=== PATIENT | female | born 1940 | race Caucasian/White ===

== ENCOUNTER 2017-09-03 09:56 | Emergency (ER) | payer MEDICARE ==
[~2017-09-03] VITALS: Ht 152.4 cm; Wt 52.2 kg
[~2017-09-03 09:56] MED LIST: ALLER-FEX180 MG PO; AMBIEN 5 MG TABL5 M1 PO; CRANBERRY300 MG PO; DILTIAZEM 24HR180 M1 PO; ELIQUIS5 MG PO; FELODIPINE 5 MG5 M1 PO; FISH OIL 1,001000 M2 PO; LIPITOR80 MG PO; MAXZIDE-25 MG1 EACH PO; PROAIR RESPICL90 MCG IH; PROBIOTIC1 EAC1 PO; PROPAFENONE 15150 MG PO; TRAMADOL 50 MG50 MG PO; VITAMIN D3400 UNIT PO; VITAMINC500 PO; XANAX 0.5 MG0.5 MG PO
[2017-09-03] MEDS ORDERED: LASIX 20 MG TAB20 MG PO (10:06)
[2017-09-03 10:32] LABS: HEMOGLOBIN 10.1 gm/dL (12.0-15.0); MCH 28.9 pg (26.0-34.0); MCHC 32.5 g/dL (28.0-37.0); MCV 88.8 fL (80.0-100.0); MPV 7.9 fl. (7.2-11.1); NUCLEATED RBCS 0 /100WBC; PLATELET COUNT* 286 thou/uL (150-400); RBC 3.49 mil/uL (4.20-5.00); RDW-CV 14.5 % (10.5-14.5); WBC 12.9 thou/uL (4.0-11.0)
[2017-09-03 10:37] LABS: ANION GAP 7 mmol/L (7-16); BUN 29 mg/dL (7-18); CALCIUM 8.5 mg/dL (8.5-10.1); CHLORIDE 100 mmol/L (98-107); CO2 28 mmol/L (21-32); CREATININE 1.9 mg/dL (0.6-1.3); GLUCOSE 103 mg/dL (70-99); POTASSIUM 4.5 mmol/L (3.5-5.1); SODIUM 135 mmol/L (136-145)
[2017-09-03 10:49] LABS: ALBUMIN 2.7 g/dL (3.4-5.0); ALKALINE PHOSPHATASE 150 U/L (46-116); SGOT 35 U/L (15-37); SGPT 37 U/L (30-65); TOTAL BILIRUBIN 0.3 mg/dL (<0.1-1.0); TOTAL PROTEIN 8.1 g/dL (6.4-8.2); TROPONIN-I LEVEL <0.06 ng/mL (<0.06)
[2017-09-03 11:07] LABS: URINE BILIRUBIN NEGATIVE (Negative); URINE BLOOD TRACE (Negative); URINE CLARITY CLEAR; URINE COLOR STRAW; URINE GLUCOSE-RANDOM NEGATIVE (Negative); URINE KETONES NEGATIVE (Negative); URINE LEUKOCYTES-REFLEX TRACE (Negative); URINE NITRITE-REFLEX NEGATIVE (Negative); URINE PROTEIN 2+ (Negative); URINE UROBILINOGEN 0.2 E.U./dl (0.2-1.0)
[2017-09-03 11:15] LABS: SQUAMOUS 4-10 Moderate /LPF (0-3)
[2017-09-03 11:16] LABS: BACTERIA-REFLEX None Seen /HPF (None Seen); URINE RBC 0-2 Rare /HPF (0-2); URINE WBC-REFLEX 0-5 Rare /HPF (0-5)
[2017-09-03 11:17] LABS: CASTS None Seen /LPF (None Seen); CRYSTALS None Seen /LPF (None Seen); MUCUS None Seen strn/LPF (None Seen)
[2017-09-03 11:32] LABS: ABSOLUTE BASOPHILS 0.1 thou/uL (0.0-0.2); ABSOLUTE LYMPHOCYTES 0.3 thou/uL (0.8-5.3); ABSOLUTE MONOCYTES 0.3 thou/uL (0.0-1.2); ABSOLUTE NEUTROPHILS 12.3 thou/uL (1.6-8.1); PLATELET ESTIMATE ADEQUATE
[2017-09-03 11:33] LABS: MICROCYTES Occasional; POIKILOCYTOSIS Occasional
[2017-09-03] MEDS ORDERED: DOXYCYCLINE 10100 MG PO (12:50)
[2017-09-03 12:55] VITALS: BP 148/50
--- NOTE | 2017-09-04 13:39 | EKG ---
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
== END 2017-09-03 12:56 | disposition left against medical advice (07) ==
LOC: M.ERS 09:56
PROVIDERS: Physician Assistant
DX: L02.31 Cutaneous abscess of buttock (principal); N76.4 Abscess of vulva; N17.9 Acute kidney failure, unspecified; H53.8 Other visual disturbances; F41.9 Anxiety disorder, unspecified; F32.9 Major depressive disorder, single episode, unspecified; E78.00 Pure hypercholesterolemia, unspecified; Z88.0 Allergy status to penicillin

== ENCOUNTER 2017-09-03 14:09 | Inpatient (IN) | payer MEDICARE ==
[~2017-09-03] VITALS: Ht 152.4 cm; Wt 55.8 kg
[~2017-09-03 14:09] MED LIST changes: +DOXYCYCLINE 10100 MG PO; +LASIX 20 MG TAB20 MG PO
[2017-09-03 18:00] VITALS: BP 176/57
[2017-09-03 18:48] VITALS: BP 165/60
--- NOTE | 2017-09-03 20:10 | NUR ---
ASSUMED CARE OF PATIENT AT 1830. ALERT AND ORIENTED X4. ADMISSION HISTORY AND ASSESSMENT COMPLETED AND CHARTED. VSS ON ROOM AIR. PATIENT HAS NO COMPLAINTS OF PAIN, NAUSEA, OR SOA. ORIENTED TO ROOM AND INSTRUCTED TO USE CALL LIGHT FOR NEEDS. PLACED CALL LIGHT WITHIN REACH AND WILL CONTINUE TO MONITOR.
[2017-09-03 20:15] VITALS: BP 165/68
[2017-09-04 04:31] LABS: ABSOLUTE EOSINOPHILS 0.2 thou/uL (0.0-0.7); ABSOLUTE LYMPHOCYTES 0.7 thou/uL (0.8-5.3); ABSOLUTE MONOCYTES 1.2 thou/uL (0.0-1.2); BASOPHILS 0.4 %; EOSINOPHILS 1.9 %; HEMATOCRIT 27.8 % (37.0-47.0); MCH 29.1 pg (26.0-34.0); MCHC 32.4 g/dL (28.0-37.0); MCV 89.9 fL (80.0-100.0); MONOCYTES 10.9 %; NUCLEATED RBCS 0 /100WBC; PLATELET COUNT* 266 thou/uL (150-400); POLYS 80.8 %; RBC 3.09 mil/uL (4.20-5.00); RDW-CV 14.3 % (10.5-14.5); WBC 11.2 thou/uL (4.0-11.0)
--- NOTE | 2017-09-04 04:45 | NUR ---
PATIENT REMAINS ALERT AND ORIENTED X4 THROUGHOUT SHIFT. VITAL SIGNS STABLE ON ROOM AIR. IV PATENT IN THE RIGHT AC INFUSING AT 70 ML/HR PER ORDERS. MAINTAINED NPO STATUS SINCE MIDNIGHT. REPOSITIONING SELF IN BED. PAIN MANAGED WITH PO MEDICAITON PER ORDERS. DENIES NAUSEA. TRANSFERRING AD MANDEEP TO THE RESTROOM. RESTING COMFORTABLY THROUGHOUT NIGHT. HOURLY ROUNDING COMPLETE. CALL LIGHT WITHIN REACH. NURSING WILL CONTINUE TO MONITOR.
[2017-09-04 04:53] LABS: CALCIUM 8.4 mg/dL (8.5-10.1); CREATININE 1.6 mg/dL (0.6-1.3); POTASSIUM 4.4 mmol/L (3.5-5.1)
[2017-09-04 08:51] VITALS: BP 125/58
--- NOTE | 2017-09-04 15:27 | NUR ---
PT.RETURNING FROM BATHROOM TO BED. GAIT STEADY. MOVES WELL. SHE SAID SHE LIVES ALONE AT THE [facility]. SHE SAID YOU CAN PURCHASE MEALS THERE ABUT SHE COOKS HER HERSELF. SHE TAKES HER OWN MEDICATIONS. SHE NO LONGER DRIVES. HER SON OR DAUGHTER TAKE HER TO THE DR.OR ERRANDS. SHE DOES NOT USE ANY DME. NOT HX OF SNF. SHE WOULD LIKE TO USE [facility] IF SHE NEEDS HOME HEALTH. SHE HAS USED THEM BEFORE. CM WILL FOLLOW.
[2017-09-04 16:00] VITALS: BP 166/53
--- NOTE | 2017-09-04 18:09 | NUR ---
ASSUMED CARE OF PATIENT AFTER MORNING REPORT. ALERT AND ORIENTED X4. ASSESSMENT COMPLETED AND CHARTED. VSS ON ROOM AIR. PATIENT HAD COMPLAINT OF HEADACHE AND WAS GIVEN PAIN MEDICATION. PATIENT WAS VERY ANXIOUS THIS AFTERNOON, ANTIANXIETY MEDS GIVEN. PATIENTS IV WAS RED AND IRRITATED SO IT WAS DISCONTINUED AND A NEW LINE WAS PLACED IN THE LEFT WRIST. FLUIDS AND ANTIBIOTICS INFUSED ORDERED. PATIENT HAS HAD A SHOWER TODAY. HOURLY ROUNDS, CALL LLIGHT WITHIN REACH, NURSING WILL CONTINUE TO MONITOR.
[2017-09-04 20:00] VITALS: BP 171/72
[2017-09-04 23:00] VITALS: BP 166/57
[2017-09-05 03:59] LABS: ABSOLUTE EOSINOPHILS 0.2 thou/uL (0.0-0.7); ABSOLUTE LYMPHOCYTES 0.7 thou/uL (0.8-5.3); ABSOLUTE MONOCYTES 1.3 thou/uL (0.0-1.2); ABSOLUTE NEUTROPHILS 7.4 thou/uL (1.6-8.1); BASOPHILS 0.5 %; EOSINOPHILS 2.2 %; HEMATOCRIT 24.6 % (37.0-47.0); HEMOGLOBIN 8.1 gm/dL (12.0-15.0); LYMPHOCYTES 7.4 %; MCH 29.1 pg (26.0-34.0); MCHC 32.8 g/dL (28.0-37.0); MCV 88.7 fL (80.0-100.0); MONOCYTES 13.3 %; MPV 8.1 fl. (7.2-11.1); NUCLEATED RBCS 0 /100WBC; PLATELET COUNT* 249 thou/uL (150-400); POLYS 76.6 %; RBC 2.77 mil/uL (4.20-5.00); RDW-CV 14.1 % (10.5-14.5); WBC 9.7 thou/uL (4.0-11.0)
[2017-09-05 04:48] LABS: ALBUMIN 1.9 g/dL (3.4-5.0); CALCIUM 7.6 mg/dL (8.5-10.1); CREATININE 1.5 mg/dL (0.6-1.3); POTASSIUM 3.9 mmol/L (3.5-5.1); TOTAL BILIRUBIN 0.2 mg/dL (<0.1-1.0); TOTAL PROTEIN 6.3 g/dL (6.4-8.2)
--- NOTE | 2017-09-05 06:00 | NUR ---
PATIENT HAS SLEPT WELL THROUGHOUT THE NIGHT WITHOUT ANY ISSUES. NO C/O PAIN. VSS ON RA, ALTHOUGH BP ELEVATED. MEDICATION GIVEN AND CHARTED. PATIENT IS UP AD-MANDEEP AND STEADY. IV IN LEFT WRIST-NS @ 70ML/HR. IV ABT GIVEN WITHOUT ANY ADVERSE SIDE EFFECTS. PATIENT INSTRUCTED TO USE CALL LIGHT WHEN NEEDING ASSISTANCE. HOURLY ROUNDS MADE. WILL CONTINUE WITH PLAN OF CARE AND NURSING TO MONITOR.
[2017-09-05 09:03] VITALS: BP 160/57
[2017-09-05 16:00] VITALS: BP 130/44
--- NOTE | 2017-09-05 18:10 | NUR ---
PATIENT REMAINED ALERT AND ORIENTED X'S 4. VITAL SIGNS AND SPO2 STABLE. IV WENT BAD, NEW IV STARTED, FLUIDS INFUSING. IF NEW IV GOES BAD, DO NOT ATTEMPT NEW ONE, CALL THE CREDIT COLLECTIONS ANALYST TO START NEW ONE. PAIN WELL CONTROLLED WITH PAIN MEDS. TOLERATED DIET, NO NAUSEA AND VOMITING. PATIENT WALKED HALLS. SKIN HAS BRUISING, BUT INTACT. COMPLETED HOURLY ROUNDING. CALL LIGHT WITHIN REACH. WILL CONTINUE TO MONITOR.
[2017-09-06 04:14] LABS: HEMATOCRIT 26.7 % (37.0-47.0); HEMOGLOBIN 8.8 gm/dL (12.0-15.0); MCH 29.2 pg (26.0-34.0); MCHC 32.8 g/dL (28.0-37.0); MCV 89.2 fL (80.0-100.0); MPV 7.6 fl. (7.2-11.1); NUCLEATED RBCS 0 /100WBC; PLATELET COUNT* 271 thou/uL (150-400); RBC 2.99 mil/uL (4.20-5.00); RDW-CV 14.2 % (10.5-14.5); WBC 9.6 thou/uL (4.0-11.0)
[2017-09-06 05:00] LABS: CREATININE 1.4 mg/dL (0.6-1.3); POTASSIUM 4.1 mmol/L (3.5-5.1); TOTAL BILIRUBIN 0.2 mg/dL (<0.1-1.0); TOTAL PROTEIN 6.7 g/dL (6.4-8.2)
[2017-09-06 06:31] LABS: ABSOLUTE EOSINOPHILS 0.1 thou/uL (0.0-0.7); ABSOLUTE LYMPHOCYTES 0.4 thou/uL (0.8-5.3); ABSOLUTE MONOCYTES 0.8 thou/uL (0.0-1.2); ABSOLUTE NEUTROPHILS 8.4 thou/uL (1.6-8.1)
[2017-09-06 06:32] LABS: PLATELET ESTIMATE ADEQUATE
[2017-09-06 09:00] VITALS: BP 142/43
[2017-09-06 16:00] VITALS: BP 162/55
--- NOTE | 2017-09-06 16:42 | NUR ---
PT UP IN HALLS WITH STEADY GAIT. PAIN WELL CONTROLLED WITH PO MEDS. SEROSANG DRAINAGE AFTER WARM MOIST COMPRESSES APPLIED. TOLERATING PO WELL
--- NOTE | 2017-09-06 21:35 | NUR ---
THIS NURSE ASSUMES CARE OF PT AT 1930, PT ALERT AND OREINTED, C/O LEFT BUTTOCK PAIN, RATES PAIN 09/22, PT REPORTS HAVING A GOOD DAY, DENIES ANY OTHER COMPLAINTS, REPORTS HAVING A BM TODAY, ASSESSMENT COMPLETE, SCHEDULED MEDS AND PRN MEDS ADMINISTERED, PT RESTING IN BED WATCHING TELEVISION
[2017-09-07 04:19] LABS: ABSOLUTE EOSINOPHILS 0.4 thou/uL (0.0-0.7); ABSOLUTE LYMPHOCYTES 0.5 thou/uL (0.8-5.3); ABSOLUTE MONOCYTES 0.9 thou/uL (0.0-1.2); ABSOLUTE NEUTROPHILS 4.4 thou/uL (1.6-8.1); BASOPHILS 0.7 %; EOSINOPHILS 6.5 %; HEMATOCRIT 24.2 % (37.0-47.0); LYMPHOCYTES 8.6 %; MCH 29.3 pg (26.0-34.0); MCHC 32.9 g/dL (28.0-37.0); MCV 88.9 fL (80.0-100.0); MPV 7.6 fl. (7.2-11.1); NUCLEATED RBCS 0 /100WBC; PLATELET COUNT* 276 thou/uL (150-400); POLYS 70.2 %; RBC 2.73 mil/uL (4.20-5.00); RDW-CV 14.5 % (10.5-14.5); WBC 6.3 thou/uL (4.0-11.0)
[2017-09-07 04:32] LABS: ALBUMIN 1.8 g/dL (3.4-5.0); CREATININE 1.5 mg/dL (0.6-1.3); POTASSIUM 3.8 mmol/L (3.5-5.1); TOTAL BILIRUBIN 0.2 mg/dL (<0.1-1.0); TOTAL PROTEIN 6.2 g/dL (6.4-8.2)
--- NOTE | 2017-09-07 06:21 | NUR ---
PT EASY TO ARROUSE THIS MORNING, BP OBTAINED, MORNING MEDS ADMINISTERED, PT C/O SOA, O2 SAT 86% ON ROOM AIR, NC PLACED AT 2L, SATS UP TO 93%, MINIMAL DRAINAGE FROM ABSCESS, PT CHANGES PADS INDEPENDENTLY AND DOES NOT WANT THIS NURSE TO SEE THE WOUND, PT ABLE TO AMBULATE TO BATHROOM INDEPENDENTLY, THEN BACK TO BED WITH NC IN PLACE, CALLL LIGHT WITHIN REACH, WEB PAGE SENT TO PHYSICAN REGARDING 02 DESATURATION IN AM 2 DAYS IN A ROW AND SOA THIS DAY
[2017-09-07 06:50] LABS: PLATELET ESTIMATE ADEQUATE
[2017-09-07 06:51] LABS: ANISOCYTOSIS 1+; POIKILOCYTOSIS 1+; POLYCHROMASIA Occasional
--- NOTE | 2017-09-07 07:19 | CON ---
[address] [address] CONSULTATION Name: SAMUELADRIANA R Room: [address] IN M.R.#: [id number] Admission: 09/03/17 Attend Phys: Jozef Dang MD Discharge: Date of : 38 Report #: [id number] THIS REPORT FOR: //name// CC: Jozef Butcherchance DATE OF SERVICE: 09/04/2017 ATTENDING PHYSICIAN: Jozef Dang M.D. REASON FOR EVALUATION: Left buttock/left labia skin and soft tissue infection with abscess. HISTORY OF PRESENT ILLNESS: Chart reviewed, patient examined. This is a 76-year-old without significant medical history who presented with lightheadedness, was evaluated and blurry vision as well. This raised question of possible HAM BONER event, referred to the Emergency Room. Evaluation was undertaken including imaging, which was unremarkable in terms of an acute process. Did note a painful inflammation involving her left buttock and labia. 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 She had low-grade temperature elevation as well. Denies significant pulmonary or gastrointestinal complaints. Blood cultures have been collected, in progress. Empirically started on therapy with vancomycin. ALLERGIES: PENICILLIN. MEDICATIONS: Include diltiazem, cholecalciferol, fish oil, ascorbic acid, atorvastatin, pantoprazole, vancomycin, propafenone, tramadol, hydralazine, p.r.n. analgesics and antiemetics. PAST MEDICAL HISTORY: Elevated cholesterol, history of anxiety, depression, previous tubal ligation. SOCIAL HISTORY: Former smoker. No ethanol, no illicit drug use. FAMILY HISTORY: Noncontributory. REVIEW OF SYSTEMS: As above. PHYSICAL EXAMINATION: GENERAL: She appears somewhat chronically ill, undernourished, is pleasant, cooperative, mild to moderate distress. VITAL SIGNS: Temperature 98.5, pulse 82, respirations 20, blood pressure is 120/54. SKIN: Warm, dry. HEENT: [place] [address] CONSULTATION Name: ADRIANA BAKER Room: [address] IN [facility].#: [id number] Admission: 09/03/17 Attend Phys: Jozef Dang MD Discharge: Date of : 39 Report #: [id number] NECK: Supple. LUNGS: Diminished, otherwise clear. HEART: Regular, has a soft systolic murmur. ABDOMEN: Soft, no peritoneal signs. There is no tenderness in the perineal area. She has got a large inflammatory subcutaneous mass. It is quite indurated. There is some superficial erythema as well. It is tender involving the left buttock, also has a left labial site as well. LABORATORY DATA: CBC: White count 11.2, H and H 9.0 and 27.8, platelets of 266. Electrolytes: Sodium 136, potassium , chloride 104, bicarbonate is 26, BUN and creatinine 22 and 1.6. Urinalysis unremarkable. Imaging of the head again showed no evidence of acute process. Lactic acid 0.8. ASSESSMENT: Multifocal subcutaneous inflammatory masses, probable abscess, given the fact that there is a that makes it less likely to have a primary colonic compromise, question of perforation. We will image the site. I think the vancomycin is reasonable. If she would have a deterioration, we would add some treatment for presumptive colonic polymicrobial etiology as well. Noted Surgery to evaluate. There is some concern due to previous situation. She is on Eliquis and had some bleeding post-bedside debridement of a perineal abscess. Thank you, we will follow. <ELECTRONICALLY SIGNED> By: Michael Oliveira MD 09/07/17 0719 0807 1534Joselawrence Oliveira MD /nt
[2017-09-07 08:30] VITALS: BP 157/52
[2017-09-07 16:27] VITALS: BP 179/57
[2017-09-07 20:30] VITALS: BP 168/52
[2017-09-08 03:28] VITALS: BP 181/66
[2017-09-08 03:57] LABS: ABSOLUTE EOSINOPHILS 0.3 thou/uL (0.0-0.7); ABSOLUTE LYMPHOCYTES 0.5 thou/uL (0.8-5.3); ABSOLUTE MONOCYTES 0.9 thou/uL (0.0-1.2); ABSOLUTE NEUTROPHILS 3.7 thou/uL (1.6-8.1); BASOPHILS 0.5 %; EOSINOPHILS 6.3 %; HEMATOCRIT 26.5 % (37.0-47.0); HEMOGLOBIN 8.6 gm/dL (12.0-15.0); LYMPHOCYTES 8.9 %; MCH 28.8 pg (26.0-34.0); MCHC 32.6 g/dL (28.0-37.0); MCV 88.5 fL (80.0-100.0); MPV 7.2 fl. (7.2-11.1); NUCLEATED RBCS 0 /100WBC; PLATELET COUNT* 309 thou/uL (150-400); POLYS 67.3 %; RBC 2.99 mil/uL (4.20-5.00); RDW-CV 14.3 % (10.5-14.5); WBC 5.5 thou/uL (4.0-11.0)
[2017-09-08 04:07] LABS: CREATININE 1.3 mg/dL (0.6-1.3); POTASSIUM 3.5 mmol/L (3.5-5.1); TOTAL BILIRUBIN 0.2 mg/dL (<0.1-1.0); TOTAL PROTEIN 6.7 g/dL (6.4-8.2)
[2017-09-08 04:08] LABS: PREALBUMIN 14.1 mg/dL (18.0-35.7)
[2017-09-08 04:16] VITALS: BP 181/66
--- NOTE | 2017-09-08 05:07 | NUR ---
PATIENT REMAINS ALERT AND ORIENTED X4 THROUGHOUT SHIFT. VITAL SIGNS STABLE ON 2 LITERS OF OXYGEN. IV PATENT IN THE LEFT FOREARM SALINE LOCKED. INFUSED ANTIBIOTICS PER ORDERS. PAIN MANAGED WITH PO MEDICATION. REPOSITIONING SELF IN BED. TRANSFERRING AD MANDEEP TO THE RESTROOM. PATIENT STATED SHE WAS HAVING DIFFICULTY BREATHING THIS AM. PAGED PHYSICIAN. ORDERS RECIEVED. MAINTAINED NPO STATUS SINCE MIDNIGHT PER ORDERS. K PAD IN ROOM, PATIENT DECLINED USING. HOURLY ROUNDING COMPLETE. RESTING COMFORTABLY THROUGHOUT THE NIGHT. BED IN LOW POSITION. CALL LIGHT WITHIN REACH. NURSING WILL CONTINUE TO MONITOR.
[2017-09-08 07:45] VITALS: BP 154/58
[2017-09-08 16:02] VITALS: BP 195/54
--- NOTE | 2017-09-08 17:38 | NUR ---
ALERT AND ORIENTED X4. UP AD MANDEEP DURING AMBULATION. IV IS PATENT AND SALINE LOCKED. PAIN BEING MANAGED WITH PO MEDICATION. DENIES NAUSEA. ABULATED IN HALLWAYS THIS SHIFT. BLOOD PRESSURE WAS ELEVATED THIS EVENING, PRN MEDICATION GIVEN. HOURLY ROUNDS HAVE BEEN MAINTAINED THROUGHOUT SHIFT. CALL LIGHT IS WITHIN REACH. NURSING WILL CONTINUE TO MONITOR.
[2017-09-08 18:54] VITALS: BP 195/54
[2017-09-08 22:05] VITALS: BP 178/61
[2017-09-09 00:41] VITALS: BP 117/57
--- NOTE | 2017-09-09 03:48 | NUR ---
ASSUMED PATIENT CARE FROM NIGHT NURSE AT APPROXIMATELY 0000. PATIENT SLEEPING AT THIS TIME. REPORT GIVEN AND AGREE WITH ASSESSMENT CHARTED. NURSING TO CONTINUE MONITORING.
[2017-09-09 04:13] VITALS: BP 131/56
[2017-09-09 04:40] LABS: HEMATOCRIT 26.5 % (37.0-47.0); HEMOGLOBIN 8.8 gm/dL (12.0-15.0); MCH 28.9 pg (26.0-34.0); MCHC 33.1 g/dL (28.0-37.0); MCV 87.4 fL (80.0-100.0); MPV 7.6 fl. (7.2-11.1); NUCLEATED RBCS 0 /100WBC; RBC 3.03 mil/uL (4.20-5.00); RDW-CV 14.6 % (10.5-14.5); WBC 6.3 thou/uL (4.0-11.0)
[2017-09-09 04:57] LABS: CALCIUM 8.5 mg/dL (8.5-10.1); CREATININE 1.4 mg/dL (0.6-1.3)
[2017-09-09 04:58] LABS: PLATELET COUNT* 385 thou/uL (150-400)
[2017-09-09 05:12] LABS: PREALBUMIN 14.8 mg/dL (18.0-35.7)
[2017-09-09 05:25] LABS: POTASSIUM 2.9 mmol/L (3.5-5.1)
[2017-09-09 05:42] LABS: ABSOLUTE EOSINOPHILS 0.1 thou/uL (0.0-0.7); ABSOLUTE LYMPHOCYTES 0.6 thou/uL (0.8-5.3); ABSOLUTE MONOCYTES 0.8 thou/uL (0.0-1.2); ABSOLUTE NEUTROPHILS 4.9 thou/uL (1.6-8.1); ANISOCYTOSIS 1+; HYPOCHROMASIA Occasional; PLATELET ESTIMATE ADEQUATE; POIKILOCYTOSIS 1+
--- NOTE | 2017-09-09 07:46 | NUR ---
PATIENT HAS RESTED QUIETLY THROUGHOUT THE NIGHT. VSS ON RA. NO C/O PAIN. IV IN LEFT FOREARM-SL. PATIENT INSTRUCTED TO USE CALL LIGHT WHEN NEEDING ASSISTANCE. HOURLY ROUNDS MADE. WILL CONTINUE WITH PLAN OF CARE AND NURSING TO MONITOR.
[2017-09-09 09:00] VITALS: BP 162/60
--- NOTE | 2017-09-09 16:29 | NUR ---
ASSUMED CARE OF PATIENT AFTER MORNING REPORT. ALERT AND ORIENTED X4. ASSESSMENT COMPLETED AND CHARTED. VSS ON ROOM AIR. PATIENT HAD MINIMAL COMLAINTS OF PAIN THIS SHIFT, GIVEN HDROCODONE BUT PATIENT REFUSED, ASKED FOR TYLENOL INSTEAD. DR REYNOLDS ORDERED ULTRASOUND OF BUTTOCK/FENG AREA AND CHANGED ANTIBIOTICS. ORDERED ANTIBIOTICS INFUSED ORDERED. PATIENT HAS BEEN UP AD MANDEEP IN THE ROOM AND WALKING THE HALLS THIS SHIFT. PATIENTS ANXIETY HAS INCREASED THIS AFTERNOON ABOUT GETTING THE ULTRASOUND DONE AND KNOWING HER LAB CULTURE SENSITIVITIES. PATIENT HAS FAMILY IN THE ROOM AY THIS TIME. HOURLY ROUNDS MAINTAINED, CALL LIGHT WITHIN REACH. NURSIN WILL CONTINUE TO MONITOR.
[2017-09-09 20:30] VITALS: BP 185/69
[2017-09-10 00:07] VITALS: BP 155/55
[2017-09-10 00:08] VITALS: BP 152/71
[2017-09-10 04:14] LABS: ABSOLUTE EOSINOPHILS 0.3 thou/uL (0.0-0.7); ABSOLUTE LYMPHOCYTES 0.5 thou/uL (0.8-5.3); ABSOLUTE MONOCYTES 0.9 thou/uL (0.0-1.2); ABSOLUTE NEUTROPHILS 3.3 thou/uL (1.6-8.1); BASOPHILS 0.5 %; EOSINOPHILS 5.8 %; HEMATOCRIT 25.2 % (37.0-47.0); HEMOGLOBIN 8.3 gm/dL (12.0-15.0); MCH 28.7 pg (26.0-34.0); MCHC 32.9 g/dL (28.0-37.0); MCV 87.4 fL (80.0-100.0); MONOCYTES 18.8 %; MPV 7.3 fl. (7.2-11.1); NUCLEATED RBCS 0 /100WBC; PLATELET COUNT* 343 thou/uL (150-400); POLYS 64.9 %; RBC 2.88 mil/uL (4.20-5.00); RDW-CV 14.9 % (10.5-14.5); WBC 5.1 thou/uL (4.0-11.0)
[2017-09-10 04:28] LABS: CALCIUM 8.2 mg/dL (8.5-10.1); CREATININE 1.4 mg/dL (0.6-1.3); POTASSIUM 4.3 mmol/L (3.5-5.1); TOTAL BILIRUBIN 0.3 mg/dL (<0.1-1.0); TOTAL PROTEIN 6.5 g/dL (6.4-8.2)
--- NOTE | 2017-09-10 04:33 | NUR ---
PATIENT REMAINS ALERT AND ORIENTED X4 THROUGHOUT SHIFT. VITAL SIGNS STABLE ON ROOM AIR. IV PATENT IN THE LEFT FOREARM SALINE LOCKED. TRANSFERS AD MANDEEP TO THE RESTROOM. MAINAINED AND TOLERATED REGULAR DIET THROUGHOUT SHIFT. DENIES PAIN OR NAUSEA. RESTING COMFORTABLY THROUGHOUT THE NIGHT. REPOSITIONING SELF IN BED. MEDICATIONS GIVEN PER ORDERS. NO CONCERNS VOICED AT THIS TIME. HOURLY ROUNDING COMPLETE. CALL LIGHT WITHIN REACH. NURSING WILL CONTINUE TO MONITOR.
[2017-09-10 09:18] VITALS: BP 157/56
--- NOTE | 2017-09-10 11:33 | EKG ---
[place] [address] ELECTROCARDIOGRAM REPORT Name: SAMUELADRIANA Juan Jose Room: [address] ADM IN M.R.#: [id number] Admission: 09/03/17 Attend Phys: Jozef Dang MD Discharge: Date of : 38 Report #: [id number] THIS REPORT FOR: //name// [facility] Test Date: 2017-09-10 Test Time: 10:03:10 Pat Name: ADRIANA BAKER Department: Room: [address] Gender: F Hospital Receiving Clerk: : 1940 Requested By: Joe Alvarado Order Number: [id number] Reading MD: Agustin Browning Measurements Intervals [place] Rate: 74 P: 29 MA: 52 QRS: 56 QRSD: 87 T: 42 QT: 397 QTc: 441 Interpretive Statements Sinus rhythm Short MA interval Anteroseptal infarct, old Baseline wander in lead(s) V6 Compared to ECG 09/03/2017 10:05:59 Short MA interval now present Myocardial infarct finding now present Electronically Signed On 09-10-2017 11:33:13 CDT by Agustin Browning [email or web address] <ELECTRONICALLY SIGNED> By: Agustin Browning MD, [facility] 09/10/17 1133 1003 1003 Agustin Browning MD, [facility] /EPI
[2017-09-10 11:44] VITALS: BP 157/56
[2017-09-10 11:47] VITALS: BP 157/56
[2017-09-10 11:48] VITALS: BP 157/56
[2017-09-10] MEDS ORDERED: MINOCIN100 MG PO (12:01)
--- NOTE | 2017-09-10 13:01 | NUR ---
Nutrition: Pt discharging today. She stated she doesn't eat a lot, but her doctor put her on Boost t.i.d. at home. We discussed protein needs. No further nutrition needs.
--- NOTE | 2017-09-10 15:29 | NUR ---
ASSUMED CARE OF PATIENT AFTER MORNING REPORT. ALERT AND ORIENTED X4. ASSESSMENT COMPLETED AND CHARTED. VSS ON ROOM AIR. PATIENT HAD NO COMPLAINTS OF PAIN, NAUSEA, OR SOA. PO ANTIBIOTICS ADMINISTERED ORDERED. PATIENT REFUSED TO TAKE DISCHARGE PHOTOS OF HER WOUND FOR THE CHART. PATIENT DISCHARGED AT 1500. L PERSONAL BELONGING, PRESCRIPTIONS AND DISCHARGE INFORMATION SENT WITH PATIENT UPON DISCHARGE.
--- NOTE | 2017-09-13 18:18 | CON ---
[address] [address] CONSULTATION Name: SAMUELADRIANA Juan Jose Room: [address] IN M.R.#: [id number] Admission: 09/03/17 Attend Phys: Jozef Dang MD Discharge: 09/10/17 Date of : 38 Report #: [id number] THIS REPORT FOR: //name// CC: Jozef Stroud MD DATE OF SERVICE: 09/09/2017 HISTORY OF PRESENT ILLNESS: The patient is a 76-year-old white female who I was asked to see in the hospital today after her blood pressure was noted to be elevated. The patient has an extensive past medical history. Unfortunately, not all of the old records are available. She was actually admitted here in 03/2016 with atrial fibrillation. Apparently, she had showed up in her doctor's office with atrial fibrillation. She was eventually discharged on Eliquis. She did undergo an echocardiogram at that time that showed normal left ventricular function. The atria are both dilated and she had aortic sclerosis with moderate mitral regurgitation. She underwent a nuclear stress test in May 2016 as an outpatient that showed no evidence of ischemia. The patient states that she eventually went to because her son wanted her to go there. Dr. Browning attempted cardioversion, but she reverted to atrial fibrillation. When she went to , she was actually cardioverted 3 times successfully to sinus rhythm. She has actually done well since that time. Recently, the patient went to the color blender with blurred vision. She was felt to have had a stroke. She was sent to the Emergency Room and admitted. Since her admission, she has been evaluated by Infectious Disease, Gynecology. She was found to have a sacral sore. She has been receiving surgery for her soft tissue infection. Her blood pressure is noted to be elevated, so Cardiology consultation was requested. PAST MEDICAL HISTORY: Significant in that she has had previous appendectomy, cancer of the colon removed. She has had a tonsillectomy. She has a history of hypertension, hyperlipidemia, atrial fibrillation. MEDICATIONS: On admission consisted of the following: She was on Eliquis, Cardizem-CD, propafenone, Lasix, tramadol, Lipitor. ALLERGIES: PENICILLIN. FAMILY HISTORY: Father, heart disease. SOCIAL HISTORY: She is , lives in [place]. She goes for walks on a regular basis. Quit smoking years ago. No history of alcohol abuse. REVIEW OF SYSTEMS: She has had no history of stroke, asthma. She has had a carotid Doppler in the past at , no history of liver disease. No previous history of kidney disease, [place] [address] CONSULTATION Name: ADRIANA BAKER Room: [address] IN M.R.#: [id number] Admission: 09/03/17 Attend Phys: Jozef Dang MD Discharge: 09/10/17 Date of : 38 Report #: [id number] PHYSICAL EXAMINATION: GENERAL: Revealed an elderly female who is sitting in bed. She appeared in no distress. VITAL SIGNS: She had a blood pressure of 170/90, pulse 70. She is afebrile. HEENT: She is anicteric, conjunctiva pink. Mucous members moist. NECK: Veins nondistended. Bilateral carotid bruits were heard. CHEST: Clear to auscultation. CARDIOVASCULAR: Regular rate and rhythm, grade 2 systolic ejection murmur. ABDOMEN: Soft, nontender. EXTREMITIES: Had no edema. Dorsalis pedis pulse 2+ bilaterally. SKIN: Warm and dry. LABORATORY DATA: There is no ECG in the chart. She did have lab work, however, that showed sodium 140, potassium is 2.9, creatinine 1.4. Liver function studies are normal. Troponin 1990. INR 1. White blood cell count 6.3, hemoglobin 8.8. Her rhythm strips in the chart were not available. IMPRESSION AND RECOMMENDATIONS: 1. Hypertension. No evidence of secondary causes. The patient has been on calcium gonzales. I would consider adding an SERENA inhibitor or ARB. 2. History of atrial fibrillation. The patient appears to be in sinus rhythm on Rythmol. I would continue anticoagulation with Eliquis, although a decreased dose because of chronic kidney disease. 3. [place]. 4. Hyperlipidemia. The patient is on a statin drug. 5. History of colon cancer. <ELECTRONICALLY SIGNED> By: Joe Alvarado MD, [facility] 09/13/17 1818 1710 [id number] Alvarado MD, FAC /nt
== END 2017-09-10 15:00 | disposition home or self-care (01) | DRG 602 ==
LOC: M.ERS 14:09 → M.ORTHSURG 14:27 → M.TBA-ER 14:27 → M.ORTHSURG 17:58
PROVIDERS: ADMIT Internal Medicine
DX: L02.31 Cutaneous abscess of buttock (principal); R65.11 Systemic inflammatory response syndrome (SIRS) of non-infectious origin with acute organ dysfunction; N17.9 Acute kidney failure, unspecified; N76.4 Abscess of vulva; J98.11 Atelectasis; L03.116 Cellulitis of left lower limb; L03.317 Cellulitis of buttock; N76.2 Acute vulvitis; E78.5 Hyperlipidemia, unspecified; I10 Essential (primary) hypertension; L89.95 Pressure ulcer of unspecified site, unstageable; E86.0 Dehydration; I48.91 Unspecified atrial fibrillation; H53.8 Other visual disturbances; F41.9 Anxiety disorder, unspecified; F32.9 Major depressive disorder, single episode, unspecified; Z79.899 Other long term (current) drug therapy; Z79.2 Long term (current) use of antibiotics; Z87.891 Personal history of nicotine dependence; Z88.0 Allergy status to penicillin; Z85.038 Personal history of other malignant neoplasm of large intestine; Z79.01 Long term (current) use of anticoagulants; Z82.49 Family history of ischemic heart disease and other diseases of the circulatory system

== ENCOUNTER → 2018-02-23 | Outpatient (CLI) | payer MEDICARE ==
[~2018-02-23] MED LIST changes: +MINOCIN100 MG PO
== END ==
LOC: M.RAD 02-11 13:13
DX: Z12.31 Encounter for screening mammogram for malignant neoplasm of breast (principal); M81.0 Age-related osteoporosis without current pathological fracture; Z78.0 Asymptomatic menopausal state

== ENCOUNTER → 2018-03-30 | Outpatient (CLI) | payer MEDICARE | LOC: M.RAD 09:34 | DX: R92.1 Mammographic calcification found on diagnostic imaging of breast (principal) ==

== ENCOUNTER 2019-07-26 10:05 | Inpatient (IN) | payer MEDICARE ==
[~2019-07-26] VITALS: Ht 149.9 cm; Wt 68.0 kg
[~2019-07-26 10:05] MED LIST changes: +VITAMIN D3250 MC2 PO; -VITAMIN D3400 UNIT PO
[2019-07-26 10:08] VITALS: BP 164/46
[2019-07-26 10:24] LABS: ABSOLUTE EOSINOPHILS 0.1 thou/uL (0.0-0.7); ABSOLUTE LYMPHOCYTES 0.6 thou/uL (0.8-5.3); ABSOLUTE MONOCYTES 0.7 thou/uL (0.0-1.2); ABSOLUTE NEUTROPHILS 5.7 thou/uL (1.6-8.1); BASOPHILS 0.6 %; HEMATOCRIT 21.4 % (37.0-47.0); HEMOGLOBIN 7.1 gm/dL (12.0-15.0); MCH 31.1 pg (26.0-34.0); MCHC 33.3 g/dL (28.0-37.0); MCV 93.3 fL (80.0-100.0); MONOCYTES 9.5 %; MPV 7.6 fl. (7.2-11.1); NUCLEATED RBCS 0 /100WBC; PLATELET COUNT* 308 thou/uL (150-400); POLYS 80.9 %; RBC 2.29 mil/uL (4.20-5.00); RDW-CV 17.1 % (10.5-14.5)
[2019-07-26 10:36] LABS: CALCIUM 8.5 mg/dL (8.5-10.1); CREATININE 2.5 mg/dL (0.6-1.3); POTASSIUM 4.9 mmol/L (3.5-5.1)
[2019-07-26 10:37] LABS: APTT 25.4 Seconds (25.0-31.3); PROTIME 10.7 Seconds (9.20-11.50)
[2019-07-26] MEDS ORDERED: CARVEDILOL25 MG PO (10:39)
[2019-07-26 10:40] LABS: ALBUMIN 3.3 g/dL (3.4-5.0); TOTAL BILIRUBIN 0.4 mg/dL (<0.1-1.0); TOTAL PROTEIN 7.2 g/dL (6.4-8.2)
[2019-07-26] MEDS ORDERED: FOLIC ACID1 MG PO (10:40)
[2019-07-26] MEDS ORDERED: BUSPIRONE HCL10 MG PO (10:40)
[2019-07-26] MEDS ORDERED: AMIODARONE HCL400 MG PO (10:43)
[2019-07-26] MEDS ORDERED: SPIRONOLACTONE25 MG PO (10:43)
[2019-07-26] MEDS ORDERED: LIPITOR 20 MG T20 M1 PO (10:44)
[2019-07-26] MEDS ORDERED: ELIQUIS2.5 MG PO (10:44)
[2019-07-26] MEDS ORDERED: NORVASC 2.5 MG2.5 M1 PO (10:45)
[2019-07-26 10:46] LABS: URINE BILIRUBIN NEGATIVE (Negative); URINE BLOOD TRACE (Negative); URINE CLARITY CLEAR; URINE COLOR YELLOW; URINE GLUCOSE-RANDOM NEGATIVE (Negative); URINE KETONES NEGATIVE (Negative); URINE PROTEIN 2+ (Negative); URINE UROBILINOGEN 0.2 E.U./dl (0.2-1.0)
[2019-07-26] MEDS ORDERED: REMERON15 M2 PO (10:46)
[2019-07-26 10:47] LABS: URINE LEUKOCYTES-REFLEX 2+ (Negative); URINE NITRITE-REFLEX POSITIVE (Negative)
[2019-07-26 10:51] LABS: MUCUS 0-3 Light strn/LPF (None Seen); SQUAMOUS 0-3 Few /LPF (0-3); URINE RBC 0-2 Rare /HPF (0-2)
[2019-07-26 10:52] LABS: CASTS None Seen /LPF (None Seen); CRYSTALS None Seen /LPF (None Seen)
[2019-07-26 14:16] VITALS: BP 130/45
[2019-07-26] MEDS ORDERED: LIPITOR40 MG PO (15:17)
[2019-07-26] MEDS ORDERED: PROBIOTIC1 EAC7 PO (15:22)
--- NOTE | 2019-07-26 15:31 | EKG ---
[place] [address] ELECTROCARDIOGRAM REPORT Name: ADRIANA BAKER Room: [address] ADM IN ..#: [id number] Admission: 07/26/19 Attend Phys: Gabrielle Silveira, Discharge: Date of : 38 Date of Service: 07/26/19 1015 Report #: [id number] THIS REPORT FOR: //name// [facility] ED Test Date: 2019-07-26 Test Time: 10:15:52 Pat Name: ADRINAA BAKER Department: Room: [facility] Gender: F Platform Architect: CCD : 1940 Requested By: Arvind Ramsey Order Number: [id number] MD: Marlon Garcia Measurements Intervals [place] Rate: 69 P: [place]: QRS: 35 QRSD: 87 T: 21 QT: 412 QTc: 442 Interpretive Statements Sinus rhythm Baseline wander in lead(s) V6 Compared to ECG 09/10/2017 10:03:10 Myocardial infarct finding no longer present Electronically Signed On 07-26-2019 15:29:26 CDT by Marlon Garcia [email or web address] <ELECTRONICALLY SIGNED> By: Marlon Garcia MD, [facility] 07/26/19 1529 1015 1015 Marlon Garcia MD, [facility] /EPI
[2019-07-26 20:00] VITALS: BP 170/51
[2019-07-27] VITALS (7 sets, daily range): BP systolic 105–171; BP diastolic 34–67
[2019-07-27 03:49] LABS: MCH 31.4 pg (26.0-34.0); MCHC 33.6 g/dL (28.0-37.0); MCV 93.6 fL (80.0-100.0); MPV 7.5 fl. (7.2-11.1); RBC 1.84 mil/uL (4.20-5.00); RDW-CV 17.4 % (10.5-14.5); WBC 5.1 thou/uL (4.0-11.0)
[2019-07-27 04:11] LABS: ALBUMIN 2.6 g/dL (3.4-5.0); CALCIUM 7.8 mg/dL (8.5-10.1); CREATININE 2.3 mg/dL (0.6-1.3); MAGNESIUM 2.5 mg/dL (1.8-2.4); TOTAL BILIRUBIN 0.2 mg/dL (<0.1-1.0); TOTAL PROTEIN 5.9 g/dL (6.4-8.2)
[2019-07-27 04:12] LABS: HEMOGLOBIN 5.8 gm/dL (12.0-15.0)
[2019-07-27 04:13] LABS: HEMATOCRIT 17.2 % (37.0-47.0)
[2019-07-27] MEDS ORDERED: REMERON30 MG PO (09:43)
[2019-07-27 21:18] LABS: HEMATOCRIT 22.7 % (37.0-47.0)
[2019-07-27 21:19] LABS: HEMOGLOBIN 7.8 gm/dL (12.0-15.0)
[2019-07-28 00:04] VITALS: BP 127/47
[2019-07-28 04:05] VITALS: BP 118/56
[2019-07-28 04:26] LABS: HEMOGLOBIN 7.5 gm/dL (12.0-15.0); MCH 31.1 pg (26.0-34.0); MCHC 34.3 g/dL (28.0-37.0); MCV 90.7 fL (80.0-100.0); MPV 8.1 fl. (7.2-11.1); RBC 2.43 mil/uL (4.20-5.00); RDW-CV 16.7 % (10.5-14.5); WBC 4.7 thou/uL (4.0-11.0)
[2019-07-28 04:44] LABS: ALBUMIN 2.5 g/dL (3.4-5.0); CALCIUM 7.4 mg/dL (8.5-10.1); POTASSIUM 4.8 mmol/L (3.5-5.1); TOTAL BILIRUBIN 0.3 mg/dL (<0.1-1.0); TOTAL PROTEIN 5.5 g/dL (6.4-8.2)
[2019-07-28 08:00] VITALS: BP 127/55
[2019-07-28 12:29] VITALS: BP 117/49
[2019-07-28 13:12] LABS: CHOLESTEROL 100 mg/dL (<200); HDL CHOLESTEROL 33 mg/dL (>40); LDL CHOLESTEROL 51 mg/dL (<100); SERUM ASSESSMENT Clear; TRIGLYCERIDE 80 mg/dL (<150); VLDL 16 mg/dL (<40)
--- NOTE | 2019-07-28 15:11 | 2DMMODE ---
[place] [address] 2 D/M-MODE ECHOCARDIOGRAM Name: ADRIANA BAKER Room: [address] IN [facility]#: [id number] Admission: 07/26/19 Attend Phys: Gabrielle Silveira, Discharge: Date of : 38 Date of Service: 07/28/19 1509 Report #: [id number] THIS REPORT FOR: cc: Joe Stroud MD, David L. MD Liston, Michael J. MD [facility] ~ APPROVED REPORT Study performed: 07/28/2019 14:17:39 EXAM: Comprehensive 2D, Doppler, and color-flow Echocardiogram Patient Location: In-Patient Room #: [facility] Status: routine BSA: 1.60 HR: 54 bpm BP: 127/55 mmHg Rhythm: NSR Other Information Study Quality: Good Indications CVA/TIA Echo Enhancing Agent Indication: Rule out Shunt Agent(s) / Amount(s) Used: Agitated Saline 10 cc 2D Dimensions IVSd: 11.63 (7-11mm) LVOT Diam: 18.89 (18-24mm) LVDd: 42.63 mm PWd: 10.64 (7-11mm) Ascending Ao: 29.68 (22-36mm) LVDs: 24.49 (25-40mm) Aortic Root: 31.17 mm Volumes Left Atrial Volume (Systole) LA ESV Index: 38.10 mL/m2 Aortic Valve AoV Peak Timur.: 1.78 m/s AO Peak Gr.: 12.74 mmHg LVOT Max P.16 mmHg AO Mean Gr.: 6.79 mmHg LVOT Mean P[place]40 [place] [address] 2 D/M-MODE ECHOCARDIOGRAM Name: SAMUELADRIANABLANCA TORREZ Room: [address] IN ..#: [id number] Admission: 07/26/19 Attend Phys: Gabrielle Silveira, Discharge: Date of : 38 Date of Service: 07/28/19 1509 Report #: [id number] LVOT Max V: 1.34 m/s AO V2 VTI: 41.42 cm LVOT Mean V: 0.84 m/s ELODIA (VTI): 2.40 cm2 LVOT V1 VTI: 35.51 cm Mitral Valve E/A Ratio: 1.34 MV Decel. Time: 213.41 ms MV E Max Timur.: 1.46 m/s MV PHT: 61.89 ms MVA (PHT): 3.55 cm2 TDI E/Lateral E': 13.27 E/Medial E': 20.86 Medial E' Timur.: 0.07 m/s Lateral E' Timur.: 0.11 m/s Pulmonary Valve PV Peak Timur.: 0.86 m/s PV Peak Gr.: 2.97 mmHg Tricuspid Valve RAP Estimate: 5.00 mmHg TR Peak Gr.: 28.66 mmHg RVSP: 33.00 mmHg PA Pressure: 33.00 mmHg Left Ventricle The left ventricle is normal size. There is normal LV segmental wall motion. There is normal left ventricular wall thickness. Left ventricular systolic function is normal. LVEF is 60-65%. Transmitral Doppler flow pattern suggests restrictive physiology. Right Ventricle The right ventricle is normal size. The right ventricular systolic function is normal. Atria Left atrium is mildly dilated. The interatrial septum is intact with no evidence for an atrial septal defect. The right atrium size is normal. Aortic Valve Mild aortic valve sclerosis. Trace aortic regurgitation. There is no aortic valvular stenosis. Mitral Valve There is mitral annular calcification. Mild mitral regurgitation. No evidence [place] [address] 2 D/M-MODE ECHOCARDIOGRAM Name: ADRIANA BAKER Room: [address] IN [facility]#: [id number] Admission: 07/26/19 Attend Phys: Gabrielle Silveira, Discharge: Date of : 38 Date of Service: 07/28/19 1509 Report #: [id number] Tricuspid Valve The tricuspid valve is normal in structure. Mild tricuspid regurgitation. The RVSP is 30-35 mmHg. Pulmonic Valve The pulmonary valve is normal in structure. Mild pulmonic regurgitation. Great Vessels The aortic root is normal in size. IVC is normal in size and collapses >50% with inspiration. Pericardium There is no pericardial effusion. <Conclusion> The left ventricle is normal size. There is normal left ventricular wall thickness. Left ventricular systolic function is normal. LVEF is 60-65%. Transmitral Doppler flow pattern suggests restrictive physiology. There is normal LV segmental wall motion. The interatrial septum is intact with no evidence for an atrial septal defect. Left atrium is mildly dilated. Mild aortic valve sclerosis. Trace aortic regurgitation. There is no aortic valvular stenosis. There is mitral annular calcification. Mild mitral regurgitation. Mild tricuspid regurgitation. The RVSP is 30-35 mmHg. IVC is normal in size and collapses >50% with inspiration. <ELECTRONICALLY SIGNED> By: Bandar Cullen MD, FACC 07/28/19 1509 1509 1509 Bandar Cullen MD, FACC /INF
[2019-07-28 19:40] VITALS: BP 168/51
[2019-07-28 23:50] VITALS: BP 148/41
[2019-07-29 04:31] VITALS: BP 118/40
[2019-07-29 05:05] LABS: HEMATOCRIT 23.3 % (37.0-47.0); HEMOGLOBIN 7.8 gm/dL (12.0-15.0); MCH 30.9 pg (26.0-34.0); MCHC 33.7 g/dL (28.0-37.0); MCV 91.6 fL (80.0-100.0); MPV 7.9 fl. (7.2-11.1); RBC 2.54 mil/uL (4.20-5.00); RDW-CV 16.7 % (10.5-14.5)
[2019-07-29 05:14] LABS: CALCIUM 7.8 mg/dL (8.5-10.1); MAGNESIUM 2.5 mg/dL (1.8-2.4)
[2019-07-29 07:00] VITALS: BP 127/50
[2019-07-29 12:14] VITALS: BP 88/61
[2019-07-29 16:40] VITALS: BP 143/50
[2019-07-29 20:00] VITALS: BP 145/57
[2019-07-30] VITALS (31 sets, daily range): BP systolic 102–151; BP diastolic 29–93
[2019-07-30 12:19] LABS: CALCIUM 8.3 mg/dL (8.5-10.1); MAGNESIUM 2.4 mg/dL (1.8-2.4); POTASSIUM 5.6 mmol/L (3.5-5.1)
[2019-07-31] VITALS (31 sets, daily range): BP systolic 81–148; BP diastolic 25–76
[2019-07-31 04:26] LABS: HEMOGLOBIN 7.6 gm/dL (12.0-15.0); MCH 30.7 pg (26.0-34.0); MCHC 33.1 g/dL (28.0-37.0); MCV 92.6 fL (80.0-100.0); MPV 7.6 fl. (7.2-11.1); RBC 2.49 mil/uL (4.20-5.00); WBC 11.4 thou/uL (4.0-11.0)
[2019-07-31 04:52] LABS: ALBUMIN 2.4 g/dL (3.4-5.0); CALCIUM 7.7 mg/dL (8.5-10.1); CREATININE 2.2 mg/dL (0.6-1.3); MAGNESIUM 2.2 mg/dL (1.8-2.4); POTASSIUM 5.5 mmol/L (3.5-5.1); TOTAL BILIRUBIN 0.2 mg/dL (<0.1-1.0); TOTAL PROTEIN 5.9 g/dL (6.4-8.2)
[2019-08-01] VITALS (7 sets, daily range): BP systolic 111–162; BP diastolic 38–55
[2019-08-01 02:07] LABS: HEMATOCRIT 20.9 % (37.0-47.0); HEMOGLOBIN 7.1 gm/dL (12.0-15.0); MCH 31.2 pg (26.0-34.0); MCHC 33.8 g/dL (28.0-37.0); MCV 92.3 fL (80.0-100.0); MPV 7.9 fl. (7.2-11.1); RBC 2.26 mil/uL (4.20-5.00); RDW-CV 17.5 % (10.5-14.5); WBC 6.8 thou/uL (4.0-11.0)
[2019-08-01 02:32] LABS: ALBUMIN 2.2 g/dL (3.4-5.0); CALCIUM 7.1 mg/dL (8.5-10.1); CREATININE 2.3 mg/dL (0.6-1.3); MAGNESIUM 2.3 mg/dL (1.8-2.4); TOTAL BILIRUBIN 0.2 mg/dL (<0.1-1.0); TOTAL PROTEIN 5.5 g/dL (6.4-8.2)
[2019-08-01 02:33] LABS: POTASSIUM 4.1 mmol/L (3.5-5.1)
[2019-08-02 04:17] LABS: HEMATOCRIT 22.6 % (37.0-47.0); HEMOGLOBIN 7.5 gm/dL (12.0-15.0); MCHC 33.4 g/dL (28.0-37.0); MCV 92.8 fL (80.0-100.0); MPV 7.9 fl. (7.2-11.1); RBC 2.43 mil/uL (4.20-5.00); RDW-CV 17.5 % (10.5-14.5); WBC 8.5 thou/uL (4.0-11.0)
[2019-08-02 04:25] VITALS: BP 144/57
[2019-08-02 04:37] LABS: ALBUMIN 2.3 g/dL (3.4-5.0); CALCIUM 7.7 mg/dL (8.5-10.1); CREATININE 2.1 mg/dL (0.6-1.3); POTASSIUM 4.2 mmol/L (3.5-5.1); TOTAL BILIRUBIN 0.2 mg/dL (<0.1-1.0)
[2019-08-02 08:00] VITALS: BP 153/53
--- NOTE | 2019-08-02 11:35 | CON ---
[address] [address] CONSULTATION Name: ADRIANA BAKER Room: [address] IN M.R.#: [id number] Admission: 07/26/19 Attend Phys: Gabrielle Silveira MD Discharge: Date of : 39 Report #: [id number] THIS REPORT FOR: //name// cc: Joe Stroud MD, David L. MD ~ THIS REPORT FOR: //name// CC: Joe Silveira DATE OF SERVICE: 07/27/2019 REQUESTING PHYSICIAN: Dr. Silveira. REASON FOR CONSULTATION: Acute on chronic kidney disease. HISTORY OF PRESENT ILLNESS: The patient is a very pleasant 78-year-old female who is very well known to me as I follow her in my clinic for CKD. Her baseline creatinine is around 2.1. She presented to the Emergency Room yesterday after a fall. She has been having frequent falls for last several months. She does have problems with her cervical spine. She also has a history of chronic atrial fibrillation, hypertension, history of colon cancer, history of absence of multiple sites in the past. FAMILY HISTORY: Noncontributory. SOCIAL HISTORY: The patient lives alone. No tobacco or alcohol abuse. REVIEW OF SYSTEMS: Positive for symptoms as I mentioned earlier. She also has poor appetite, generalized weakness, pollakiuria and nocturia. Rest of the systems reviewed and negative. MEDICATIONS: Prior to admission reviewed. From my standpoint, she is on Eliquis 5 mg twice a day, diltiazem 180 mg a day, Coreg 25 mg twice a day, spironolactone, amiodarone, Remeron, amlodipine, buspirone, folic acid, fish oil. PHYSICAL EXAMINATION: GENERAL: She is awake, alert, oriented, no acute distress. VITAL SIGNS: Blood pressure 152/48, heart rate 53, afebrile. HEENT: Pupils are round. NECK: Fatty. LUNGS: Clear. CARDIOVASCULAR: Irregular rate. ABDOMEN: Soft. LOWER EXTREMITIES: [place] [address] CONSULTATION Name: ADRIANA BAKER Room: [address]#: [id number] Admission: 07/26/19 Attend Phys: Gabrielle Silveira MD Discharge: Date of : 39 Report #: [id number] LABORATORY DATA: Revealed hemoglobin of 5.8, white count 5.1, platelet count 243. Urine showed 2+ protein, 2+ leukocyte esterase, few bacteria. Serum sodium 138, potassium 5.0, chloride 106, carbon dioxide 25, BUN 43, creatinine 2.3, yesterday was 2.5. ASSESSMENT: 1. Mild acute kidney injury on top of the chronic kidney disease. Creatinine is better now. 2. Anemia. We need to rule out bleed. The patient is on Eliquis. 3. Possible urinary tract infection. 4. History of hypertension. 5. Frequent falls, most likely due to cervical spinal myelopathy. consultation was reviewed. PLAN: 1. Transfuse. 2. Stool for Hemoccult. 3. Follow labs. 4. Await report of the MRI of her cervical spine. <ELECTRONICALLY SIGNED> By: Rancho Soto MD 08/02/19 1135 1243 [id number] Soto MD /PMT
[2019-08-02 12:23] VITALS: BP 139/54
[2019-08-02 17:00] VITALS: BP 151/38
[2019-08-02 20:24] VITALS: BP 175/56
[2019-08-03] VITALS (7 sets, daily range): BP systolic 116–174; BP diastolic 44–59
[2019-08-03 05:44] LABS: HEMATOCRIT 21.8 % (37.0-47.0); HEMOGLOBIN 7.4 gm/dL (12.0-15.0); MCH 31.2 pg (26.0-34.0); MCV 91.8 fL (80.0-100.0); MPV 7.8 fl. (7.2-11.1); RBC 2.38 mil/uL (4.20-5.00); RDW-CV 16.7 % (10.5-14.5); WBC 6.1 thou/uL (4.0-11.0)
[2019-08-03 05:59] LABS: ALBUMIN 2.1 g/dL (3.4-5.0); CREATININE 1.9 mg/dL (0.6-1.3); MAGNESIUM 2.3 mg/dL (1.8-2.4); POTASSIUM 3.8 mmol/L (3.5-5.1); TOTAL BILIRUBIN 0.3 mg/dL (<0.1-1.0); TOTAL PROTEIN 6.1 g/dL (6.4-8.2)
--- NOTE | 2019-08-03 11:03 | OP ---
[address] [address] OPERATIVE REPORT Name: ADRIANA BAKER Room: [address] IN .R.#: [id number] Admission: 07/26/19 Attend Phys: Gabrielle Silveira MD Discharge: Date of : 39 Report #: [id number] THIS REPORT FOR: //name// cc: Joe Stroud MD, David L. MD ~ THIS REPORT FOR: //name// CC: Joe Silveira DATE OF SERVICE: 07/30/2019 PREOPERATIVE DIAGNOSIS: Severe symptomatic right internal carotid artery stenosis. POSTOPERATIVE DIAGNOSIS: Severe symptomatic right internal carotid artery stenosis. PROCEDURES: 1. Right carotid endarterectomy. 2. Intraoperative carotid duplex with interpretation. FINDINGS ON DUPLEX: 1. Normal waveform velocity identified within the common internal carotid arteries. 2. Color flow imaging shows patent flow in the external carotid artery. 3. No flaps or defects identified on ambriz-scale imaging. SURGEON: Pedro Hicks MD RUSSIAN RUBBER: None. ANESTHESIA: General. COMPLICATIONS: None. INDICATIONS FOR PROCEDURE: The patient is a very pleasant 78-year-old white female who presents with some left sided weakness, subacute stroke on MRI on the right and severe 90% stenosis of her right internal carotid artery. I recommended an urgent carotid endarterectomy prior to discharge. I think she is a very high risk of recurrent embolization. Informed consent was obtained with risks including but not limited to bleeding, infection, need for further surgery, pain, , heart attack, stroke. The patient understood these risks and was agreeable to proceed. DESCRIPTION OF PROCEDURE: The patient was taken to the OR and placed in supine [address] [address] OPERATIVE REPORT Name: ADRIANA BAKER Room: [address] IN [facility].#: [id number] Admission: 07/26/19 Attend Phys: Gabrielle Silveira MD Discharge: Date of : 39 Report #: [id number] position. After adequate general anesthesia was initiated, a right radial arterial line was placed by anesthesia. A timeout was performed. The patient's right neck and chest were prepped and draped in usual sterile fashion. The patient received appropriate preoperative antibiotics. The patient was systemically heparinized throughout the critical portions of procedure. I created a transverse incision in the patient's right neck. Sharp and blunt dissections were carried down along the anterior border of the sternocleidomastoid muscle. I divided multiple branches of the facial vein. I entered the carotid sheath. I dissected out the common carotid artery as well as the branches of the internal and external carotid artery. I heparinized the patient at this point in time. I clamped the carotid artery. I created a longitudinal arteriotomy from the common carotid artery onto the internal carotid artery. There was a large amount of bulky calcific plaque within the carotid bulb and internal carotid artery origin. I placed a 12 shunt without difficulty. I performed endarterectomy in standard fashion using a [place] elevator and a pair of pickups. I performed eversion endarterectomy of the external carotid artery. I closed my arteriotomy with a bovine pericardial patch and a running 6-0 Prolene suture. At the completion of the repair, there was adequate hemostasis. I performed intraoperative ultrasound findings noted above. There is patent flow normal into the internal and external carotid artery. I corrected the heparin with protamine. I controlled bleeding as needed with electrocautery, ties, clips and Devyn. I closed the wound in multiple layers using 2-0 Vicryl, 3-0 Vicryl and Stratafix for the skin. Incision was dressed with Dermabond. The patient was taken alert and awake to recovery room in good condition. No evidence of TIA or stroke. <ELECTRONICALLY SIGNED> By: Colin Wen DO 08/03/19 1103 0946 [id number] Hicks MD /christofer
[2019-08-03 14:58] LABS: URINE BLOOD NEGATIVE (Negative); URINE CLARITY CLEAR; URINE COLOR YELLOW; URINE GLUCOSE-RANDOM NEGATIVE (Negative); URINE KETONES NEGATIVE (Negative); URINE LEUKOCYTES-REFLEX NEGATIVE (Negative); URINE NITRITE-REFLEX NEGATIVE (Negative); URINE PROTEIN 2+ (Negative); URINE SPECIFIC GRAVITY 1.025 (1.005-1.030); URINE UROBILINOGEN 0.2 E.U./dl (0.2-1.0)
[2019-08-03 15:00] LABS: URINE BILIRUBIN 1+ (Negative)
[2019-08-03 15:03] LABS: ICTOTEST (BILI CONFIRMATORY) Negative (Negative)
[2019-08-03 15:05] LABS: BACTERIA-REFLEX 1-9 Few /HPF (None Seen); CASTS None Seen /LPF (None Seen); CRYSTALS None Seen /LPF (None Seen); SQUAMOUS 0-3 Few /LPF (0-3); URINE RBC 0-2 Rare /HPF (0-2); URINE WBC-REFLEX 0-5 Rare /HPF (0-5)
[2019-08-04] VITALS (7 sets, daily range): BP systolic 111–153; BP diastolic 38–52
[2019-08-04 03:53] LABS: MCH 30.4 pg (26.0-34.0); MCHC 33.3 g/dL (28.0-37.0); MCV 91.2 fL (80.0-100.0); MPV 7.5 fl. (7.2-11.1); RBC 2.12 mil/uL (4.20-5.00); RDW-CV 16.3 % (10.5-14.5); WBC 4.7 thou/uL (4.0-11.0)
[2019-08-04 04:03] LABS: CALCIUM 7.7 mg/dL (8.5-10.1); CREATININE 2.3 mg/dL (0.6-1.3); MAGNESIUM 2.4 mg/dL (1.8-2.4); POTASSIUM 4.1 mmol/L (3.5-5.1)
[2019-08-04 04:16] LABS: HEMATOCRIT 19.3 % (37.0-47.0); HEMOGLOBIN 6.4 gm/dL (12.0-15.0)
[2019-08-04 07:22] LABS: HEMATOCRIT 22.2 % (37.0-47.0); HEMOGLOBIN 7.4 gm/dL (12.0-15.0)
--- NOTE | 2019-08-04 14:10 | CON ---
[address] [address] CONSULTATION Name: ADRIANA BAKER Room: [address] IN .R.#: [id number] Admission: 07/26/19 Attend Phys: Gabrielle Silveira MD Discharge: Date of : 39 Report #: [id number] THIS REPORT FOR: //name// cc: Joe Stroud MD, David L. MD ~ THIS REPORT FOR: //name// CC: Joe Silveira MD REQUESTING PHYSICIAN: Dr. Gabrielle Silveira. REASON FOR CONSULTATION: Anemia, acute over chronic. HISTORY OF PRESENT ILLNESS: This is a 78-year-old female with history of AFib, who is on Eliquis. The patient was admitted to hospital on 07/25 with syncope and weakness. Since hospitalization, she was found to have hemoglobin of 5.4 and has been transfused. She denies any hematochezia or melena, but reports that she has had a colon surgery about 5 or 6 years ago due to her history of colon cancer. She denies any significant upper GI symptoms and she denies nausea, vomiting, dyspepsia, GERD, dysphagia, nausea, vomiting, and hematemesis. She also denies diarrhea, constipation, change in bowel habits, hematochezia, melena. PAST MEDICAL HISTORY: Significant for history of AFib, dyslipidemia, hypertension, colon cancer, anxiety, depression, spinal stenosis, chronic insufficiency, hyperlipidemia. ALLERGIES: SIGNIFICANT TO PENICILLIN. MEDICATIONS: Please refer to MAR. SOCIAL HISTORY: The patient has a remote history of tobaccoism, but has not been smoking. She may occasionally have alcoholic beverage. FAMILY HISTORY: Noncontributory. PHYSICAL EXAMINATION: VITAL SIGNS: Reveals blood pressure of 127/50, pulse 51, respiration 18, temperature 97.6. LUNGS: Clear. CARDIOVASCULAR: Regular. ABDOMEN: Soft, nontender, nondistended. Bowel sounds are positive. LABORATORY DATA: Reveal sodium of 137, potassium 5, BUN is 27, creatinine is 2. [place] [address] CONSULTATION Name: ADRIANA BAKER Room: [address] IN [facility]#: [id number] Admission: 07/26/19 Attend Phys: Gabrielle Silveira MD Discharge: Date of : 39 Report #: [id number] Liver function tests all within normal limits. Magnesium is 2.5, albumin is 2.5. Iron is 41 with TIBC of 190. Iron saturation of 22. WBC is 5, hemoglobin 7.8 up from 5.8 on 07/26, platelet is 198. IMAGING: Bilateral carotid Doppler ultrasound revealed calcified atherosclerotic plaque bilaterally with significant stenosis of the right ICA measuring greater than 70%. ASSESSMENT AND PLAN: The patient will need endoscopic evaluation. She is scheduled for her endarterectomy tomorrow. We will consider endoscopic evaluation, probably on Thursday or Thursday. This was communicated to the patient and her nurse. <ELECTRONICALLY SIGNED> By: Dennise Freitas MD 08/04/19 1410 1522 [id number] Freitas MD /nt
[2019-08-05] VITALS: BP 128/45
[2019-08-05 04:00] VITALS: BP 137/43
[2019-08-05 04:42] LABS: ABSOLUTE EOSINOPHILS 0.4 thou/uL (0.0-0.7); ABSOLUTE LYMPHOCYTES 0.4 thou/uL (0.8-5.3); ABSOLUTE MONOCYTES 0.9 thou/uL (0.0-1.2); ABSOLUTE NEUTROPHILS 3.5 thou/uL (1.6-8.1); BASOPHILS 0.7 %; EOSINOPHILS 6.8 %; HEMATOCRIT 20.3 % (37.0-47.0); LYMPHOCYTES 7.8 %; MCH 30.8 pg (26.0-34.0); MCHC 33.5 g/dL (28.0-37.0); MCV 91.7 fL (80.0-100.0); MPV 7.6 fl. (7.2-11.1); NUCLEATED RBCS 0 /100WBC; PLATELET COUNT* 249 thou/uL (150-400); POLYS 67.7 %; RBC 2.21 mil/uL (4.20-5.00); RDW-CV 16.1 % (10.5-14.5); WBC 5.2 thou/uL (4.0-11.0)
[2019-08-05 04:44] LABS: HEMOGLOBIN 6.8 gm/dL (12.0-15.0)
[2019-08-05 04:52] LABS: ALBUMIN 1.9 g/dL (3.4-5.0); CALCIUM 8.2 mg/dL (8.5-10.1); CREATININE 2.2 mg/dL (0.6-1.3); POTASSIUM 4.6 mmol/L (3.5-5.1); TOTAL BILIRUBIN 0.3 mg/dL (<0.1-1.0); TOTAL PROTEIN 5.5 g/dL (6.4-8.2)
[2019-08-05 07:30] VITALS: BP 153/50
[2019-08-05 08:00] LABS: ABSOLUTE EOSINOPHILS 0.4 thou/uL (0.0-0.7); ABSOLUTE LYMPHOCYTES 0.3 thou/uL (0.8-5.3); ABSOLUTE NEUTROPHILS 4.8 thou/uL (1.6-8.1); BASOPHILS 0.5 %; EOSINOPHILS 5.4 %; HEMATOCRIT 21.9 % (37.0-47.0); HEMOGLOBIN 7.2 gm/dL (12.0-15.0); LYMPHOCYTES 5.3 %; MCH 30.2 pg (26.0-34.0); MCV 91.6 fL (80.0-100.0); MONOCYTES 14.8 %; MPV 7.4 fl. (7.2-11.1); NUCLEATED RBCS 0 /100WBC; PLATELET COUNT* 285 thou/uL (150-400); RBC 2.39 mil/uL (4.20-5.00); RDW-CV 16.5 % (10.5-14.5); WBC 6.5 thou/uL (4.0-11.0)
[2019-08-05 11:46] VITALS: BP 121/46
[2019-08-05] MEDS ORDERED: LEVAQUIN 500 M500 M3 PO (14:14)
[2019-08-05] MEDS ORDERED: KEFLEX500 M2 PO (14:15)
[2019-08-05] MEDS ORDERED: ASPIRIN EC81 M1 PO (14:15)
[2019-08-05 14:20] VITALS: BP 121/46
== END 2019-08-05 15:43 | DRG 37 ==
LOC: M.ERS 10:05 → M.2W 12:22 → M.TBA-ER 12:22 → M.2W 14:47 → M.ICU 07-30 10:31 → M.2W 08-01 06:20
PROVIDERS: Family Medicine; Internal Medicine; Nurse Practitioner; Psychiatry & Neurology Neurology; Surgery Vascular Surgery; ADMIT Internal Medicine
DX: I63.89 Other cerebral infarction (principal); J96.01 Acute respiratory failure with hypoxia; J15.6 Pneumonia due to other Gram-negative bacteria; N17.9 Acute kidney failure, unspecified; N39.0 Urinary tract infection, site not specified; E44.1 Mild protein-calorie malnutrition; I65.21 Occlusion and stenosis of right carotid artery; F41.9 Anxiety disorder, unspecified; F32.9 Major depressive disorder, single episode, unspecified; S50.812A Abrasion of left forearm, initial encounter; S50.12XA Contusion of left forearm, initial encounter; Z60.2 Problems related to living alone; I48.91 Unspecified atrial fibrillation; E78.5 Hyperlipidemia, unspecified; B96.89 Other specified bacterial agents as the cause of diseases classified elsewhere; S20.212A Contusion of left front wall of thorax, initial encounter; R25.1 Tremor, unspecified; N18.3 Chronic kidney disease, stage 3 (moderate); M48.02 Spinal stenosis, cervical region; K44.9 Diaphragmatic hernia without obstruction or gangrene; D50.9 Iron deficiency anemia, unspecified; E87.6 Hypokalemia; M47.812 Spondylosis without myelopathy or radiculopathy, cervical region; E78.2 Mixed hyperlipidemia; I12.9 Hypertensive chronic kidney disease with stage 1 through stage 4 chronic kidney disease, or unspecified chronic kidney disease; M47.816 Spondylosis without myelopathy or radiculopathy, lumbar region; B96.20 Unspecified Escherichia coli [E. coli] as the cause of diseases classified elsewhere; Z85.038 Personal history of other malignant neoplasm of large intestine; Z68.30 Body mass index [BMI] 30.0-30.9, adult; Z88.0 Allergy status to penicillin; Z87.891 Personal history of nicotine dependence; W18.39XA Other fall on same level, initial encounter; Y93.89 Activity, other specified; Y92.89 Other specified places as the place of occurrence of the external cause; Y99.8 Other external cause status

== ENCOUNTER 2019-08-09 15:40 | Inpatient (IN) | payer MEDICARE ==
[~2019-08-09] VITALS: Ht 152.4 cm; Wt 68.5 kg
--- NOTE | ~2019-08-09 | PROC ---
[address] [address] PROCEDURE REPORT Name: ADRIANA BAKER Room: [address] IN M.R.#: [id number] Admission: 08/09/19 Attend Phys: Gabrielle Silveira MD Discharge: 08/18/19 Date of : 39 Report #: [id number] THIS REPORT FOR: //name// cc: Joe Stroud MD, David L. MD ~ THIS REPORT FOR: //name// For GI report, please see the Provation report in Perceptive 7 content. By: [id number] Records Staff EUGENIO /JUWAN
[~2019-08-09 15:40] MED LIST changes: +AMIODARONE HCL400 MG PO; +ASPIRIN EC81 M1 PO; +BUSPIRONE HCL10 MG PO; +CARVEDILOL25 MG PO; +ELIQUIS2.5 MG PO; +FOLIC ACID1 MG PO; +KEFLEX500 M2 PO; +LEVAQUIN 500 M500 M3 PO; +LIPITOR 20 MG T20 M1 PO; +LIPITOR40 MG PO; +NORVASC 2.5 MG2.5 M1 PO; +PROBIOTIC1 EAC7 PO; +REMERON15 M2 PO; +REMERON30 MG PO; +SPIRONOLACTONE25 MG PO
[2019-08-09 15:49] VITALS: BP 151/62
[2019-08-09 16:11] LABS: HEMATOCRIT 22.3 % (37.0-47.0); HEMOGLOBIN 7.6 gm/dL (12.0-15.0); MCH 30.3 pg (26.0-34.0); MCHC 33.9 g/dL (28.0-37.0); MCV 89.6 fL (80.0-100.0); MPV 7.5 fl. (7.2-11.1); NUCLEATED RBCS 0 /100WBC; PLATELET COUNT* 361 thou/uL (150-400); RBC 2.49 mil/uL (4.20-5.00)
[2019-08-09 16:22] LABS: BE -0.4 mmol/L (-2 to +3); PCO2 45.3 mmHg (35.0-45.0); PO2 69.4 mmHg (75.0-100.0); pH 7.362 (7.340-7.450)
[2019-08-09 16:26] LABS: CREATININE 1.7 mg/dL (0.6-1.3); POTASSIUM 4.6 mmol/L (3.5-5.1)
[2019-08-09 16:27] LABS: APTT 35.8 Seconds (25.0-31.3); INR 1.1; PROTIME 10.8 Seconds (9.20-11.50)
[2019-08-09 16:30] LABS: ALBUMIN 2.5 g/dL (3.4-5.0); MAGNESIUM 2.3 mg/dL (1.8-2.4); TOTAL BILIRUBIN 0.4 mg/dL (<0.1-1.0)
[2019-08-09 16:48] LABS: ABSOLUTE LYMPHOCYTES 0.2 thou/uL (0.8-5.3); ABSOLUTE MONOCYTES 0.5 thou/uL (0.0-1.2); ABSOLUTE NEUTROPHILS 7.4 thou/uL (1.6-8.1)
[2019-08-09 16:49] LABS: ANISOCYTOSIS 1+; PLATELET ESTIMATE ADEQUATE
[2019-08-09 16:50] LABS: POLYCHROMASIA Occasional
[2019-08-09 20:15] VITALS: BP 141/49
[2019-08-09 20:22] VITALS: BP 131/66
[2019-08-09 21:01] VITALS: BP 192/95
[2019-08-09 22:08] VITALS: BP 179/56
[2019-08-09 22:22] LABS: URINE BILIRUBIN NEGATIVE (Negative); URINE BLOOD TRACE (Negative); URINE CLARITY CLEAR; URINE COLOR STRAW; URINE GLUCOSE-RANDOM NEGATIVE (Negative); URINE KETONES NEGATIVE (Negative); URINE LEUKOCYTES-REFLEX 1+ (Negative); URINE NITRITE-REFLEX NEGATIVE (Negative); URINE PROTEIN TRACE (Negative); URINE SPECIFIC GRAVITY 1.015 (1.005-1.030); URINE UROBILINOGEN 0.2 E.U./dl (0.2-1.0)
[2019-08-09 22:27] LABS: MUCUS None Seen strn/LPF (None Seen); SQUAMOUS 4-10 Moderate /LPF (0-3); URINE RBC 0-2 Rare /HPF (0-2); URINE WBC-REFLEX 0-5 Rare /HPF (0-5)
[2019-08-09 22:28] LABS: AMORPHOUS URATES Few /LPF (None Seen); BACTERIA-REFLEX 1-9 Few /HPF (None Seen); CASTS None Seen /LPF (None Seen)
[2019-08-09 23:00] VITALS: BP 146/52
[2019-08-10] VITALS (22 sets, daily range): BP systolic 119–189; BP diastolic 42–101
[2019-08-10 04:35] LABS: BE -0.1 mmol/L (-2 to +3); PO2 77.1 mmHg (75.0-100.0)
[2019-08-10 04:42] LABS: PCO2 50.2 mmHg (35.0-45.0)
[2019-08-10 05:40] LABS: MCH 29.8 pg (26.0-34.0); MCHC 33.3 g/dL (28.0-37.0); MCV 89.5 fL (80.0-100.0); MPV 7.2 fl. (7.2-11.1); RBC 2.24 mil/uL (4.20-5.00); RDW-CV 16.4 % (10.5-14.5); WBC 6.8 thou/uL (4.0-11.0)
[2019-08-10 05:48] LABS: HEMOGLOBIN 6.7 gm/dL (12.0-15.0)
[2019-08-10 05:50] LABS: CALCIUM 7.9 mg/dL (8.5-10.1); CREATININE 1.7 mg/dL (0.6-1.3); MAGNESIUM 2.1 mg/dL (1.8-2.4); POTASSIUM 4.5 mmol/L (3.5-5.1)
[2019-08-10 13:20] LABS: HEMATOCRIT 24.5 % (37.0-47.0); HEMOGLOBIN 8.3 gm/dL (12.0-15.0)
--- NOTE | 2019-08-10 14:05 | EKG ---
[place] [address] ELECTROCARDIOGRAM REPORT Name: ADRIANA BAKER Room: [address] ADM IN .R.#: [id number] Admission: 08/09/19 Attend Phys: Gabrielle Silveira, Discharge: Date of : 39 Date of Service: 08/09/19 1549 Report #: [id number] THIS REPORT FOR: //name// [facility] ED Test Date: 2019-08-09 Test Time: 15:49:34 Pat Name: ADRIANA BAKER Department: Room: [facility] Gender: F Jury Consultant: CCD : 1940 Requested By: Gisele Guevara Order Number: [id number] MD: Marlon Garcia Measurements Intervals [place] Rate: 63 P: AR: QRS: 37 QRSD: 89 T: 20 QT: 430 QTc: 441 Interpretive Statements Sinus rhythm Low voltage, precordial leads Baseline wander in lead(s) V3,V4,V5,V6 Compared to ECG 07/26/2019 10:15:52 Low QRS voltage now present Electronically Signed On 08-10-2019 14:03:53 CDT by Marlon Garcia [email or web address] <ELECTRONICALLY SIGNED> By: Marlon Garcia MD, [facility] 08/10/19 1403 1549 1549 Marlon Garcia MD, [facility] /EPI
[2019-08-11] VITALS (17 sets, daily range): BP systolic 113–161; BP diastolic 11–85
[2019-08-11 04:44] LABS: ABSOLUTE LYMPHOCYTES 0.3 thou/uL (0.8-5.3); ABSOLUTE MONOCYTES 0.4 thou/uL (0.0-1.2); ABSOLUTE NEUTROPHILS 6.2 thou/uL (1.6-8.1); BASOPHILS 0.1 %; HEMATOCRIT 23.6 % (37.0-47.0); HEMOGLOBIN 8.1 gm/dL (12.0-15.0); LYMPHOCYTES 3.7 %; MCH 30.2 pg (26.0-34.0); MCHC 34.2 g/dL (28.0-37.0); MCV 88.2 fL (80.0-100.0); MONOCYTES 5.9 %; MPV 7.3 fl. (7.2-11.1); NUCLEATED RBCS 0 /100WBC; PLATELET COUNT* 321 thou/uL (150-400); POLYS 90.3 %; RBC 2.68 mil/uL (4.20-5.00); RDW-CV 15.3 % (10.5-14.5); WBC 6.9 thou/uL (4.0-11.0)
[2019-08-11 05:04] LABS: CALCIUM 7.7 mg/dL (8.5-10.1); CREATININE 1.8 mg/dL (0.6-1.3); MAGNESIUM 2.2 mg/dL (1.8-2.4); POTASSIUM 4.5 mmol/L (3.5-5.1)
[2019-08-11 05:28] LABS: BE -0.9 mmol/L (-2 to +3); PCO2 46.2 mmHg (35.0-45.0); PO2 73.1 mmHg (75.0-100.0); pH 7.347 (7.340-7.450)
[2019-08-12] VITALS (8 sets, daily range): BP systolic 116–164; BP diastolic 40–76
[2019-08-12 04:49] LABS: HEMOGLOBIN 7.5 gm/dL (12.0-15.0); RDW-CV 15.3 % (10.5-14.5)
[2019-08-12 04:51] LABS: ABSOLUTE LYMPHOCYTES 0.4 thou/uL (0.8-5.3); ABSOLUTE MONOCYTES 0.9 thou/uL (0.0-1.2); ABSOLUTE NEUTROPHILS 8.4 thou/uL (1.6-8.1); EOSINOPHILS 0.4 %; HEMATOCRIT 21.8 % (37.0-47.0); LYMPHOCYTES 3.8 %; MCH 30.4 pg (26.0-34.0); MCHC 34.4 g/dL (28.0-37.0); MCV 88.1 fL (80.0-100.0); MPV 7.4 fl. (7.2-11.1); NUCLEATED RBCS 0 /100WBC; PLATELET COUNT* 316 thou/uL (150-400); POLYS 86.8 %; RBC 2.48 mil/uL (4.20-5.00); WBC 9.7 thou/uL (4.0-11.0)
[2019-08-12 05:07] LABS: ALBUMIN 2.1 g/dL (3.4-5.0); CALCIUM 7.6 mg/dL (8.5-10.1); CREATININE 1.9 mg/dL (0.6-1.3); MAGNESIUM 2.2 mg/dL (1.8-2.4); POTASSIUM 4.2 mmol/L (3.5-5.1); TOTAL BILIRUBIN 0.4 mg/dL (<0.1-1.0); TOTAL PROTEIN 5.7 g/dL (6.4-8.2)
--- NOTE | 2019-08-12 07:39 | CON ---
[address] [address] CONSULTATION Name: ADRIANA BAKER Room: [address] IN .R.#: [id number] Admission: 08/09/19 Attend Phys: Gabrielle Silveira MD Discharge: Date of : 39 Report #: [id number] THIS REPORT FOR: //name// cc: Joe Stroud MD, David L. MD ~ THIS REPORT FOR: //name// CC: Joe Silveira DATE OF SERVICE: 08/10/2019 REQUESTING PHYSICIAN: Gabrielle Silveira MD INDICATION FOR CONSULTATION: Acute hypoxemic respiratory failure. HISTORY OF PRESENT ILLNESS: This is a 78-year-old female. The patient does have a previous history of smoking about half a pack a day for 40 years. She discontinued several years ago. The patient does have chronic atrial fibrillation as well and has had issues with ongoing slow GI blood loss. She does have chronic renal insufficiency as well. The patient was recently admitted to this hospital. During the previous hospitalization earlier this month, the patient was treated for a urinary tract infection as well as pulmonary infiltrates. The patient has also had recent endarterectomy performed as well as an upper GI endoscopy. The patient was eventually transferred to [facility] facility. She was treated for pneumonia with therapy. There has been deterioration in the patient's condition and she did have increasing shortness of breath. The patient was transferred to this hospital yesterday. She has had a repeat chest x-ray performed which in fact shows a significant increase in infiltrates. This is also confirmed by a repeat CT. There is a previous CT chest available for comparison. Overnight, the patient was recommended use of a BiPAP. She does have hypercarbia on her arterial blood gases, pH was also mildly decreased. The patient, however, refused BiPAP. She currently is on 5 liters nasal cannula and is saturating in the mid to low 90s. The patient is not in any respiratory distress at this time. She does complain of a cough. There is not much sputum production. She did not describe upper respiratory complaints. She does not have swelling of lower extremities or calf pain. Also did not have abdominal pain. The patient was limited in providing review of systems. Regardless, I was able to perform a complete review of systems. The patient's review of systems is negative except as mentioned above. PAST MEDICAL HISTORY: [place] [address] CONSULTATION Name: ADRIANA BAKER Room: [address] IN [facility]#: [id number] Admission: 08/09/19 Attend Phys: Gabrielle Silveira MD Discharge: Date of : 39 Report #: [id number] 1. Chronic renal insufficiency. The patient's baseline creatinine is around 7, which is the current creatinine. 2. Chronic atrial fibrillation. She had previous echocardiogram showing normal left ventricular ejection fraction with elevation in right heart pressures. There has been mild to moderate mitral regurgitation reported. 3. GI bleed. The patient had an upper GI scope performed recently and angioectasia was cauterized. There were no other additional findings on this upper GI scope. There was consideration for capsule endoscopy subsequently. I am not aware as to whether the patient has had any recent colonoscopy. 4. Recent urinary tract infection. 5. Degenerative joint disease. 6. Tremor. 7. Recent pneumonia. 8. Depression. 9. Anxiety. 10. Hyperlipidemia. 11. Tubal ligation. SOCIAL HISTORY: The patient was a smoker for 40 years, discontinued several years ago. She had alcohol use as well, I am unable to quantify at this time. She does not have heavy alcohol use. No known history of illegal drug use. ALLERGIES: PENICILLINS are reported as allergic; however, it is noted that the patient has tolerated CEPHALOSPORINS as well as meropenem without adverse reactions. FAMILY HISTORY: There is no known pertinent family history. PHYSICAL EXAMINATION: GENERAL: She is alert, awake and oriented; however, she is limited in her ability to provide history and review of systems. VITAL SIGNS: Pulse of 60 and a blood pressure of 155/60. She was saturating 94% on 5 liters nasal cannula. Afebrile with a temperature of 36.8. HEENT: Head is normocephalic and atraumatic. NECK: Does not show raised JVP, asymmetry, mass or lymph nodes. CHEST: Symmetrical expansion on inspection and palpation. On auscultation, breath sounds are decreased bilaterally. I do not hear any added sounds. HEART: Regular. There is no murmur. ABDOMEN: Soft and nontender. EXTREMITIES: Show no edema and no calf tenderness. SKIN: Dry and intact. NEUROLOGICAL: Moves all extremities bilaterally equally and spontaneously with no focal deficit. LABORATORY DATA: The patient's CT chest was performed yesterday as well as the chest x-ray and compared with the patient's previous CT chest and chest x-rays. [address] [address] CONSULTATION Name: ADRIANA BAKER Room: [address] IN M.R.#: [id number] Admission: 08/09/19 Attend Phys: Gabrielle Silveira MD Discharge: Date of : 39 Report #: [id number] There is interval significant increase in infiltrates. Component of mild fluid overload is also possible, although the patient did not have significant fluid overload on exam. The patient's chemistries in [facility] reviewed. Note that the patient's creatinine is 1.7, which may be her baseline. The patient's CBC does show anemia. She has received packed RBCs today. Coagulation studies in [facility] reviewed. Urinalysis in [facility] reviewed. The patient's COVID-19 testing is pending at this time. ASSESSMENT AND PLAN: 1. Acute on chronic hypoxemic/hypercarbic respiratory failure. In addition to acute respiratory failure, based on the patient's arterial blood gases ____ respiratory failure as well, note that on initial arterial blood gas, the pH is normal, but the pCO2 is elevated, which is suspicious of a chronic component to her failure. Etiology of this needs to be evaluated further. I suspect that the patient may have underlying previously undiagnosed chronic obstructive pulmonary disease. The patient's long-term oxygen needs also need to be evaluated prior to her discharge. I feel that there will be benefit in using BiPAP while asleep. The patient, however, refused last night and was in no respiratory distress at this time, and therefore, I did not insist upon the same. Considering that she is being ruled out for COVID-19 and she is not actively bronchospastic, I have not ordered nebulized bronchodilators at this time; however, these could be a consideration later. We have given her 1 dose of Solu-Medrol, may require more steroids later. 2. Pulmonary infiltrates/healthcare associated pneumonia. I reviewed the patient's CT and compared with the previous CT performed earlier this month. There is a significant increase in infiltrates. This is despite the fact that the patient is reported to have recently been treated with Levaquin as well as Keflex. Considering this history, broad-spectrum antibiotic therapy does appear to be indicated. The patient already is on meropenem. I will go ahead and add MRSA coverage in the form of linezolid as well. Certainly, COVID-19 infection can also lead to this picture on the CT chest and therefore it is appropriate to test her for COVID-19 and this was already sent. We will await results of the nasal swab for MRSA as well as a sputum culture. 3. Chronic blood loss anemia. Details of the workup that she has had in the past is not available to me at this time. She did have an upper GI scope and I did review the results. I understand that there was consideration for capsule endoscopy therefore it is possible that she has lower GI scopes as well; however, I do not have information in this regard available. It is possible that the patient would benefit from a GI consult; however, I would defer to the primary service who are more familiar with her case. Pending further evaluation, I did order Protonix and I held her Eliquis until tomorrow morning. 4. Chronic atrial fibrillation. Also, details of the workup performed in the past may need to be reviewed further. If the patient does continue to require long-term anticoagulation, then considering chronic renal insufficiency, the use of Eliquis does appear to be appropriate. Considering that she has had significant issues with anemia, consideration may also be given to having her [address] [place] [address] CONSULTATION Name: ADRIANA BAKER Room: [address] IN M.R.#: [id number] Admission: 08/09/19 Attend Phys: Gabrielle Silveira MD Discharge: Date of : 39 Report #: [id number] being evaluated by Cardiology regarding whether she will be an appropriate candidate for ____. 5. Chronic renal insufficiency. The patient's creatinine is noted to be 1.7, which may be her baseline. The patient is critically ill with acute on chronic respiratory failure with healthcare associated pneumonia and suspected COVID-19. Total time spent providing critical care to this patient today exceeds 39 minutes. <ELECTRONICALLY SIGNED> By: Pardeep Sidhu MD 08/12/19 0739 1535 [id number] Sidhu MD /nt
[2019-08-13 04:27] VITALS: BP 165/45
[2019-08-13 05:04] LABS: HEMATOCRIT 23.7 % (37.0-47.0); MCH 29.5 pg (26.0-34.0); MCHC 33.8 g/dL (28.0-37.0); MCV 87.2 fL (80.0-100.0); MPV 7.4 fl. (7.2-11.1); NUCLEATED RBCS 0 /100WBC; PLATELET COUNT* 340 thou/uL (150-400); RBC 2.72 mil/uL (4.20-5.00); RDW-CV 15.7 % (10.5-14.5); WBC 7.7 thou/uL (4.0-11.0)
[2019-08-13 05:14] LABS: ALBUMIN 2.4 g/dL (3.4-5.0); CALCIUM 8.1 mg/dL (8.5-10.1); CREATININE 2.1 mg/dL (0.6-1.3); TOTAL BILIRUBIN 0.4 mg/dL (<0.1-1.0); TOTAL PROTEIN 6.1 g/dL (6.4-8.2)
[2019-08-13 06:46] LABS: ABSOLUTE LYMPHOCYTES 0.3 thou/uL (0.8-5.3); ABSOLUTE MONOCYTES 0.2 thou/uL (0.0-1.2); ABSOLUTE NEUTROPHILS 7.2 thou/uL (1.6-8.1)
[2019-08-13 06:47] LABS: PLATELET ESTIMATE ADEQUATE
[2019-08-13 06:48] LABS: HYPOCHROMASIA 2+
[2019-08-13 08:00] VITALS: BP 170/44
[2019-08-13 12:10] VITALS: BP 143/49
[2019-08-13 16:11] VITALS: BP 158/49
[2019-08-13 20:00] VITALS: BP 168/47
[2019-08-13 23:53] VITALS: BP 145/44
[2019-08-14 01:05] LABS: ABSOLUTE LYMPHOCYTES 0.3 thou/uL (0.8-5.3); ABSOLUTE MONOCYTES 0.4 thou/uL (0.0-1.2); ABSOLUTE NEUTROPHILS 7.8 thou/uL (1.6-8.1); HEMATOCRIT 20.1 % (37.0-47.0); LYMPHOCYTES 3.3 %; MCHC 34.4 g/dL (28.0-37.0); MCV 87.3 fL (80.0-100.0); MONOCYTES 4.8 %; MPV 7.1 fl. (7.2-11.1); NUCLEATED RBCS 0 /100WBC; PLATELET COUNT* 299 thou/uL (150-400); POLYS 91.9 %; RDW-CV 15.7 % (10.5-14.5); WBC 8.5 thou/uL (4.0-11.0)
[2019-08-14 01:06] LABS: CALCIUM 7.5 mg/dL (8.5-10.1); CREATININE 2.2 mg/dL (0.6-1.3); POTASSIUM 4.4 mmol/L (3.5-5.1)
[2019-08-14 01:11] LABS: HEMOGLOBIN 6.9 gm/dL (12.0-15.0)
[2019-08-14 03:39] VITALS: BP 153/41; BP 155/50; BP 159/48; BP 160/58
[2019-08-14 07:53] LABS: HEMATOCRIT 25.3 % (37.0-47.0); HEMOGLOBIN 8.6 gm/dL (12.0-15.0)
[2019-08-14 08:00] VITALS: BP 119/47
[2019-08-14 11:50] VITALS: BP 141/40
[2019-08-14 17:31] VITALS: BP 149/49
[2019-08-14 20:00] VITALS: BP 144/52
[2019-08-15 00:08] VITALS: BP 158/60
[2019-08-15 04:56] LABS: ABSOLUTE LYMPHOCYTES 0.3 thou/uL (0.8-5.3); ABSOLUTE MONOCYTES 0.7 thou/uL (0.0-1.2); ABSOLUTE NEUTROPHILS 9.7 thou/uL (1.6-8.1); BASOPHILS 0.1 %; HEMATOCRIT 27.5 % (37.0-47.0); HEMOGLOBIN 9.4 gm/dL (12.0-15.0); LYMPHOCYTES 2.9 %; MCH 30.2 pg (26.0-34.0); MCHC 34.1 g/dL (28.0-37.0); MCV 88.5 fL (80.0-100.0); MONOCYTES 6.9 %; MPV 7.4 fl. (7.2-11.1); NUCLEATED RBCS 0 /100WBC; POLYS 90.1 %; RBC 3.11 mil/uL (4.20-5.00); RDW-CV 15.8 % (10.5-14.5); WBC 10.7 thou/uL (4.0-11.0)
[2019-08-15 04:57] VITALS: BP 151/47
[2019-08-15 05:15] LABS: ALBUMIN 2.4 g/dL (3.4-5.0); CREATININE 2.3 mg/dL (0.6-1.3); MAGNESIUM 2.4 mg/dL (1.8-2.4); PLATELET COUNT* 378 thou/uL (150-400); POTASSIUM 5.3 mmol/L (3.5-5.1); TOTAL BILIRUBIN 0.6 mg/dL (<0.1-1.0); TOTAL PROTEIN 6.3 g/dL (6.4-8.2)
[2019-08-15 12:00] VITALS: BP 148/48
[2019-08-15 14:07] LABS: CALCIUM 7.7 mg/dL (8.5-10.1); CREATININE 2.3 mg/dL (0.6-1.3); POTASSIUM 4.6 mmol/L (3.5-5.1)
[2019-08-15 16:00] VITALS: BP 157/49
[2019-08-15 20:00] VITALS: BP 165/59
[2019-08-16 04:34] VITALS: BP 176/61
[2019-08-16 08:00] VITALS: BP 142/51
[2019-08-16 09:44] LABS: MCH 29.8 pg (26.0-34.0); MCHC 32.9 g/dL (28.0-37.0); MCV 90.8 fL (80.0-100.0); MPV 7.5 fl. (7.2-11.1); RBC 1.98 mil/uL (4.20-5.00); RDW-CV 16.2 % (10.5-14.5); WBC 11.7 thou/uL (4.0-11.0)
[2019-08-16 09:56] LABS: HEMOGLOBIN 5.9 gm/dL (12.0-15.0)
[2019-08-16 10:05] LABS: CALCIUM 7.1 mg/dL (8.5-10.1); CREATININE 2.5 mg/dL (0.6-1.3); MAGNESIUM 2.1 mg/dL (1.8-2.4); POTASSIUM 4.7 mmol/L (3.5-5.1)
[2019-08-16 11:35] VITALS: BP 133/47
[2019-08-16 11:50] VITALS: BP 134/46
[2019-08-16 20:00] VITALS: BP 150/47
[2019-08-16 20:10] LABS: HEMATOCRIT 27.2 % (37.0-47.0)
[2019-08-16 20:12] LABS: HEMOGLOBIN 9.4 gm/dL (12.0-15.0)
[2019-08-16 20:18] LABS: CALCIUM 7.5 mg/dL (8.5-10.1); CREATININE 2.2 mg/dL (0.6-1.3); POTASSIUM 4.8 mmol/L (3.5-5.1)
[2019-08-17 04:00] VITALS: BP 154/92
[2019-08-17 04:53] LABS: HEMATOCRIT 25.1 % (37.0-47.0); HEMOGLOBIN 8.6 gm/dL (12.0-15.0); MCH 30.6 pg (26.0-34.0); MCHC 34.3 g/dL (28.0-37.0); MCV 89.3 fL (80.0-100.0); MPV 7.1 fl. (7.2-11.1); RBC 2.82 mil/uL (4.20-5.00); RDW-CV 15.2 % (10.5-14.5); WBC 6.1 thou/uL (4.0-11.0)
[2019-08-17 05:09] LABS: CALCIUM 7.7 mg/dL (8.5-10.1); CREATININE 2.4 mg/dL (0.6-1.3); MAGNESIUM 2.3 mg/dL (1.8-2.4); POTASSIUM 4.7 mmol/L (3.5-5.1)
[2019-08-17 08:00] VITALS: BP 159/44
[2019-08-17 12:00] VITALS: BP 138/41
[2019-08-17 16:00] VITALS: BP 154/44
[2019-08-17 21:00] VITALS: BP 170/54
[2019-08-18] VITALS: BP 154/52
[2019-08-18 04:23] LABS: HEMATOCRIT 24.5 % (37.0-47.0); HEMOGLOBIN 8.4 gm/dL (12.0-15.0); MCH 30.7 pg (26.0-34.0); MCHC 34.5 g/dL (28.0-37.0); MCV 88.9 fL (80.0-100.0); MPV 7.5 fl. (7.2-11.1); NUCLEATED RBCS 0 /100WBC; PLATELET COUNT* 190 thou/uL (150-400); RBC 2.75 mil/uL (4.20-5.00); RDW-CV 15.4 % (10.5-14.5); WBC 7.6 thou/uL (4.0-11.0)
[2019-08-18 04:36] VITALS: BP 151/42
[2019-08-18 04:36] LABS: CALCIUM 7.7 mg/dL (8.5-10.1); CREATININE 2.3 mg/dL (0.6-1.3); POTASSIUM 5.1 mmol/L (3.5-5.1)
[2019-08-18 05:37] LABS: ABSOLUTE LYMPHOCYTES 0.2 thou/uL (0.8-5.3); ABSOLUTE MONOCYTES 0.3 thou/uL (0.0-1.2); ABSOLUTE NEUTROPHILS 7.1 thou/uL (1.6-8.1)
[2019-08-18 05:38] LABS: ANISOCYTOSIS 1+; PLATELET ESTIMATE ADEQUATE; POIKILOCYTOSIS 1+
[2019-08-18 08:00] VITALS: BP 130/86
[2019-08-18 12:00] VITALS: BP 169/48
[2019-08-18] MEDS ORDERED: PROTONIX40 M2 PO (16:18)
[2019-08-18] MEDS ORDERED: RESTORIL7.5 M1 PO (16:21)
[2019-08-18] MEDS ORDERED: TYLENOL 8 HOUR650 MG PO (16:25)
[2019-08-18] MEDS ORDERED: MILK OF MA2400 MG/11 PO (16:33)
[2019-08-18] MEDS ORDERED: NASAL SPRAY30 M2 NASAL (16:37)
--- NOTE | 2019-09-18 08:28 | CON ---
[address] [address] CONSULTATION Name: ADRIANA BAKER Room: [address] IN .R.#: [id number] Admission: 08/09/19 Attend Phys: Gabrielle Silveira MD Discharge: 08/18/19 Date of : 39 Report #: [id number] THIS REPORT FOR: //name// cc: Joe Stroud MD, David L. MD ~ THIS REPORT FOR: //name// CC: Joe Silveira HISTORY OF PRESENT ILLNESS: This is a pleasant 78-year-old female with past medical history of COPD, atrial fibrillation, who presented with shortness of breath. The patient was diagnosed with pneumonia. GI service has been consulted for drop in hemoglobin. The patient denies any hematemesis, hematochezia or melena. She does report that yesterday night, her IV tubings are disconnected and she appears to have lost a significant amount of blood due to the that. PAST MEDICAL HISTORY: Significant for COPD, atrial fibrillation, chronic renal insufficiency, prior history of angioectasias, anxiety, depression and hyperlipidemia. PAST SURGICAL HISTORY: The patient has a history of tubal ligation. SOCIAL HISTORY: The patient was a smoker for 40 years, discontinued several years ago. The patient also reports alcohol use, but denies heavy alcohol use. No recreational drug use. FAMILY HISTORY: No family history of colon cancer or Schafer-related neoplasia. REVIEW OF SYSTEMS: Comprehensive 10-point review of systems is negative except for what is mentioned in the HPI. PHYSICAL EXAMINATION: GENERAL: The patient is alert, awake, oriented x 3. HEENT: Pupils are equal, round, reactive to light and accommodation. Mucous membranes are moist. There is no congestion. LUNGS: Bilateral expiratory wheezing, coarse bilateral crepitations heard. CARDIOVASCULAR: Irregularly irregular rhythm, no S1 or S2. ABDOMEN: Soft. There is no distention, guarding or rigidity. EXTREMITIES: Warm, well perfused. There is no edema. SKIN: Warm and dry. LABORATORY DATA: Hemoglobin dropped from 8-6.9, which the patient received 1 unit of blood transfusion and then back to 8.6. INR 1.1. Sodium 129, potassium 4.4, chloride 93, bicarbonate 35, BUN 34, creatinine 2.2, bilirubin 0.4, AST 26, ALT 19, [place] 92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 GI service consulted for drop in hemoglobin, but drop in hemoglobin appears to be due to blood loss from disconnected IV tubing. The patient does not have any overt signs of gastrointestinal bleeding at this time. Therefore, we do not plan on performing any endoscopic evaluation. Thank you for this consultation. <ELECTRONICALLY SIGNED> By: Rafa Quarles MD 09/18/19 0828 1533 1731Rafa Quarles MD /nt
== END 2019-08-18 17:21 | DRG 177 ==
LOC: M.ERS 15:40 → M.ICU 18:09 → M.TBA-ER 18:09 → M.ICU 19:59 → M.2W 08-11 18:58
PROVIDERS: Internal Medicine; Internal Medicine Critical Care Medicine; Personal Emergency Response Attendant; ADMIT Internal Medicine; ATTEND Internal Medicine
PROC: 30233N1 Transfusion of Nonautologous Red Blood Cells into Peripheral Vein, Percutaneous Approach (ICD-10-PCS; principal; 2019-08-10)
PROC: 5A09357 Assistance with Respiratory Ventilation, Less than 24 Consecutive Hours, Continuous Positive Airway Pressure (ICD-10-PCS; 2019-08-12)
PROC: 5A09357 Assistance with Respiratory Ventilation, Less than 24 Consecutive Hours, Continuous Positive Airway Pressure (ICD-10-PCS; 2019-08-13)
PROC: 0D598ZZ Destruction of Duodenum, Via Natural or Artificial Opening Endoscopic (ICD-10-PCS; 2019-08-16)
DX: J15.6 Pneumonia due to other Gram-negative bacteria (principal); J96.21 Acute and chronic respiratory failure with hypoxia; J96.22 Acute and chronic respiratory failure with hypercapnia; I50.33 Acute on chronic diastolic (congestive) heart failure; K31.811 Angiodysplasia of stomach and duodenum with bleeding; I48.20 Chronic atrial fibrillation, unspecified; N39.0 Urinary tract infection, site not specified; D68.69 Other thrombophilia; N17.9 Acute kidney failure, unspecified; D62 Acute posthemorrhagic anemia; I13.0 Hypertensive heart and chronic kidney disease with heart failure and stage 1 through stage 4 chronic kidney disease, or unspecified chronic kidney disease; J44.0 Chronic obstructive pulmonary disease with (acute) lower respiratory infection; F32.9 Major depressive disorder, single episode, unspecified; F41.9 Anxiety disorder, unspecified; N18.9 Chronic kidney disease, unspecified; M19.90 Unspecified osteoarthritis, unspecified site; E78.5 Hyperlipidemia, unspecified; R25.1 Tremor, unspecified; I48.0 Paroxysmal atrial fibrillation; Z20.828 Contact with and (suspected) exposure to other viral communicable diseases; I65.21 Occlusion and stenosis of right carotid artery; Z88.0 Allergy status to penicillin; Z87.891 Personal history of nicotine dependence; Z79.82 Long term (current) use of aspirin; Z79.899 Other long term (current) drug therapy

== ENCOUNTER 2019-08-26 18:40 | Inpatient (IN) | payer MEDICARE ==
[~2019-08-26] VITALS: Ht 149.9 cm; Wt 65.8 kg
[~2019-08-26 18:40] MED LIST changes: +MILK OF MA2400 MG/11 PO; +NASAL SPRAY30 M2 NASAL; +PROTONIX40 M2 PO; +RESTORIL7.5 M1 PO; +TYLENOL 8 HOUR650 MG PO
[2019-08-26 18:46] VITALS: BP 161/54
[2019-08-26] MEDS ORDERED: IPRATROPIU0.2 MG/1 M INH (18:55)
[2019-08-26] MEDS ORDERED: MELATONIN5 M4 PO (18:55)
[2019-08-26] MEDS ORDERED: CHILDREN'S ASPI81 M1 PO (18:57)
[2019-08-26] MEDS ORDERED: AMIODARONE HCL400 MG PO (18:57)
[2019-08-26] MEDS ORDERED: ATIVAN0.5 M1 PO (18:58)
[2019-08-26] MEDS ORDERED: COMBIVENT RESPIM4 GM INH (18:59)
[2019-08-26] MEDS ORDERED: CARVEDILOL25 MG PO (18:59)
[2019-08-26] MEDS ORDERED: ELIQUIS2.5 MG PO (18:59)
[2019-08-26] MEDS ORDERED: NORCO 5-325 TA1 EAC1 PO (19:00)
[2019-08-26] MEDS ORDERED: LEVAQUIN 500 M500 M3 PO (19:00)
[2019-08-26] MEDS ORDERED: KEFLEX500 M2 PO (19:00)
[2019-08-26] MEDS ORDERED: NORVASC5 M1 PO (19:01)
[2019-08-26 19:20] LABS: ABSOLUTE EOSINOPHILS 0.1 thou/uL (0.0-0.7); ABSOLUTE LYMPHOCYTES 0.3 thou/uL (0.8-5.3); ABSOLUTE MONOCYTES 0.5 thou/uL (0.0-1.2); ABSOLUTE NEUTROPHILS 2.6 thou/uL (1.6-8.1); BASOPHILS 0.3 %; EOSINOPHILS 1.9 %; LYMPHOCYTES 8.6 %; MCH 30.7 pg (26.0-34.0); MCHC 33.9 g/dL (28.0-37.0); MCV 90.5 fL (80.0-100.0); MONOCYTES 14.3 %; MPV 8.9 fl. (7.2-11.1); NUCLEATED RBCS 2 /100WBC; PLATELET COUNT* 130 thou/uL (150-400); POLYS 74.9 %; RBC 2.15 mil/uL (4.20-5.00); WBC 3.4 thou/uL (4.0-11.0)
[2019-08-26 19:23] LABS: HEMATOCRIT 19.4 % (37.0-47.0); HEMOGLOBIN 6.6 gm/dL (12.0-15.0)
[2019-08-26 19:33] LABS: CALCIUM 7.3 mg/dL (8.5-10.1); CREATININE 1.9 mg/dL (0.6-1.3); POTASSIUM 4.2 mmol/L (3.5-5.1)
[2019-08-26 19:38] LABS: ALBUMIN 2.2 g/dL (3.4-5.0); TOTAL BILIRUBIN 0.4 mg/dL (<0.1-1.0); TOTAL PROTEIN 5.4 g/dL (6.4-8.2)
[2019-08-26 19:40] LABS: APTT 24.5 Seconds (25.0-31.3); INR 0.9; PROTIME 9.7 Seconds (9.20-11.50)
[2019-08-26 21:19] VITALS: BP 134/48
[2019-08-26 21:40] VITALS: BP 138/52
[2019-08-26 22:10] VITALS: BP 117/43; BP 127/46; BP 138/40; BP 141/48
[2019-08-27] VITALS: BP 117/43
[2019-08-27 02:29] LABS: HEMATOCRIT 21.2 % (37.0-47.0); HEMOGLOBIN 7.3 gm/dL (12.0-15.0)
[2019-08-27 04:00] VITALS: BP 135/59
--- NOTE | 2019-08-27 06:54 | NUR ---
PT ADMITTED TO ROOM 228 DURING THIS SHIFT; VSS, LOW HBG, FATIGUE, SOA, A+OX4, 3LO2 NC, UP WITH SBA TO COMODE, BED ALARM ON. SHE IS ABLE TO COMMUNICATE HER NEEDS TO STAFF EFFECTIVELY. SHE HAS DENIED THE NEED FOR PAIN MEDICATION UP TO THIS TIME. SHE HAS BEEN NPO SINCE MIDNIGHT FOR A GI CONSULT TODAY. PT REPORTS SEVERAL BOUTS OF DIARRHEA; SPECIAL ISOLATION FOR R/O C.DIFF TESTING. OCCULT STOOL TEST + FOR BLOOD.
[2019-08-27 08:00] VITALS: BP 181/57
--- NOTE | 2019-08-27 09:47 | EKG ---
[place] [address] ELECTROCARDIOGRAM REPORT Name: ADRIANA BAKER Room: [address] ADM IN .R.#: [id number] Admission: 08/26/19 Attend Phys: Fortino Valencia, Discharge: Date of : 39 Date of Service: 08/26/191910 Report #: [id number] THIS REPORT FOR: //name// [facility] ED Test Date: 2019-08-26 Test Time: 19:11:22 Pat Name: ADRIANA BAKER Department: Room: [facility] Gender: F [place]: [place] : 1940 Requested By: Lili Ramirez Order Number: [id number] MD: Anastacio Pineda Measurements Intervals [place] Rate: 60 P: -12 MI: 188 QRS: 23 QRSD: 80 T: 18 QT: 414 QTc: 414 Interpretive Statements Sinus rhythm Atrial premature complex Low voltage, precordial leads Compared to ECG 08/09/2019 15:49:34 Atrial premature complex(es) now present Electronically Signed On 08-27-2019 9:46:18 CDT by Anastacio Pineda [email or web address] <ELECTRONICALLY SIGNED> By: Morenita Pineda MD, [facility] 08/27/1947 10 10 Morenita Pineda MD, [facility] /EPI
[2019-08-27 12:02] VITALS: BP 96/66
[2019-08-27 14:27] LABS: HEMATOCRIT 25.7 % (37.0-47.0); HEMOGLOBIN 8.8 gm/dL (12.0-15.0)
[2019-08-27 17:08] VITALS: BP 142/43
[2019-08-27 21:50] VITALS: BP 150/56
[2019-08-28] VITALS: BP 153/55
[2019-08-28 04:00] VITALS: BP 148/56
[2019-08-28 04:18] LABS: HEMATOCRIT 24.4 % (37.0-47.0); HEMOGLOBIN 8.2 gm/dL (12.0-15.0); MCHC 33.7 g/dL (28.0-37.0); MPV 8.9 fl. (7.2-11.1); RBC 2.74 mil/uL (4.20-5.00); RDW-CV 15.5 % (10.5-14.5); WBC 3.5 thou/uL (4.0-11.0)
[2019-08-28 04:34] LABS: CALCIUM 7.5 mg/dL (8.5-10.1); MAGNESIUM 2.3 mg/dL (1.8-2.4); POTASSIUM 4.2 mmol/L (3.5-5.1)
--- NOTE | 2019-08-28 05:59 | NUR ---
PATIENT HAS SLEPT WELL THROUGHOUT MOST OF THE NIGHT. VSS ON 4L 02 VIA NASAL CANNULA. MEDICATIONS GIVEN ORDERED AND CHARTED. STOOL SAMPLE COLLECTED AND SENT TO LAB. PATIENT REMAINS IN SPECIAL ISOLATION D/T POSSIBLE C-DIFF. PATIENT IS UP WITH SBA TO THE BSC. SINUS AUBREY ON THE TELE MONITOR. IV IN RIGHT AC-SL. PATIENT INSTRUCTED TO USE CALL LIGHT WHEN NEEDING ASSISTANCE. HOURLY ROUNDS MADE. WILL CONTINUE WITH PLAN OF CARE AND NURSING TO MONITOR.
[2019-08-28 08:00] VITALS: BP 140/51
[2019-08-28] MEDS ORDERED: IRON325 M1 PO (10:09)
[2019-08-28 12:50] VITALS: BP 140/51
--- NOTE | 2019-08-28 15:29 | NUR ---
ASSUMED PT CARE AT 0730. ASSESSMENT COMPLETED CHARTED. ABLE TO MAKE NEEDS KNOWN. PT UP TO BSC SBA. RESTING IN BED MOST OF THE DAY. DISCHARGE APPROVED TO GO BACK TO [facility]. DISCHARGE PACKET MADE AND EMBEDDED SOFTWARE DESIGN ENGINEER NOTIFIED SNF OF TRANSFER BACK. IV AND HEART MONITOR REMOVED. NO C/O PAIN OR DISCOMFORT. PT LEFT WITH [facility] SERVICE AT 1525 IN WHEELCHAIR WITH ALL BELONGINGS. CALLED [facility] AT 1512 TO GIVE REPORT. NO CONCERNS, COMMENTS, OR QUESTIONS NOTED.
--- NOTE | 2019-08-29 13:20 | NUR ---
PT ORDERS RECEIVED AND ACKNOWLEDGED. PT DISCHARGED FROM FACILITY PRIOR TO COMPLETION OF PT EVALUATION AND INTERVENTIONS.
--- NOTE | 2019-09-18 08:28 | CON ---
[address] [address] CONSULTATION Name: ADRIANA BAKER Room: [address] IN ..#: [id number] Admission: 08/26/19 Attend Phys: Fortino Valencia MD Discharge: 08/28/19 Date of : 39 Report #: [id number] THIS REPORT FOR: //name// cc: Joe Stroud MD, David L. MD ~ THIS REPORT FOR: //name// CC: Joe Valencia HISTORY OF PRESENT ILLNESS: This is a pleasant 78-year-old female with past medical history significant for duodenal arteriovenous malformations, atrial fibrillation, on Eliquis. The patient has been hospitalized because her PCP found her to be severely anemic. The patient denies any overt hematemesis, hematochezia, melena, or weight loss. PAST MEDICAL HISTORY: Atrial fibrillation, dyslipidemia, hypertension, anxiety, depression, spinal stenosis, chronic renal insufficiency. PAST SURGICAL HISTORY: Cholecystectomy, tubal ligation. SOCIAL HISTORY: The patient has prior history of smoking 1 pack per day. She takes alcohol 1-2 times per month. Denies any recreational drug use. FAMILY HISTORY: No family history of colon cancer or Schafer related neoplasia. REVIEW OF SYSTEMS: Comprehensive 10-point review of systems is negative except for what was mentioned in the HPI. PHYSICAL EXAMINATION: GENERAL: The patient is alert, awake, oriented x 3. HEENT: Pupils are equal, round, reactive to light and accommodation. Mucous membranes are moist. There is no congestion. LUNGS: Clear to auscultation bilaterally. CARDIOVASCULAR: Rate and rhythm regular, S1, S2 present. ABDOMEN: Soft. There is no distention, guarding or rigidity. EXTREMITIES: Warm, well perfused. There is no edema. SKIN: Warm and dry. LABORATORY DATA: Hemoglobin on presentation 6.6, now 8.8 after transfusion. INR is 0.9. Sodium 141, potassium 4.2, chloride 104, bicarbonate 33, BUN 18, creatinine 1.9, total bilirubin 0.4, AST 31, ALT 44, alkaline phosphatase 104. ASSESSMENT AND PLAN: Pleasant 78-year-old female with prior history of small bowel arteriovenous malformations presenting with incidentally found anemia. There are no signs of overt gastrointestinal bleeding. I would recommend conservative management at this time. [place] [address] CONSULTATION Name: ADRIANA BAKER Room: [address]#: [id number] Admission: 08/26/19 Attend Phys: Fortino Valencia MD Discharge: 08/28/19 Date of : 39 Report #: [id number] discharged, if her hemoglobin continues to be stable, I will set her up for an outpatient capsule endoscopy. <ELECTRONICALLY SIGNED> By: Rafa Quarles MD 09/18/19 0828 1618 MD mady Lechuga
== END 2019-08-28 15:25 | DRG 378 ==
LOC: M.ERS 18:40 → M.2W 19:35 → M.TBA-ER 19:35 → M.2W 21:15
PROVIDERS: Physician Assistant; ADMIT Internal Medicine; ATTEND Internal Medicine
PROC: 30233N1 Transfusion of Nonautologous Red Blood Cells into Peripheral Vein, Percutaneous Approach (ICD-10-PCS; principal; 2019-08-26)
DX: K92.2 Gastrointestinal hemorrhage, unspecified (principal); D62 Acute posthemorrhagic anemia; D68.69 Other thrombophilia; E44.0 Moderate protein-calorie malnutrition; N18.4 Chronic kidney disease, stage 4 (severe); I13.0 Hypertensive heart and chronic kidney disease with heart failure and stage 1 through stage 4 chronic kidney disease, or unspecified chronic kidney disease; I48.91 Unspecified atrial fibrillation; F32.9 Major depressive disorder, single episode, unspecified; M48.00 Spinal stenosis, site unspecified; E78.00 Pure hypercholesterolemia, unspecified; E78.5 Hyperlipidemia, unspecified; I50.9 Heart failure, unspecified; F41.1 Generalized anxiety disorder; Z68.29 Body mass index [BMI] 29.0-29.9, adult; Z79.01 Long term (current) use of anticoagulants; Z90.49 Acquired absence of other specified parts of digestive tract; Z87.891 Personal history of nicotine dependence; Z79.899 Other long term (current) drug therapy; Z88.0 Allergy status to penicillin; Z87.440 Personal history of urinary (tract) infections; Z86.73 Personal history of transient ischemic attack (TIA), and cerebral infarction without residual deficits; Z72.89 Other problems related to lifestyle

== ENCOUNTER 2019-09-02 17:59 | Inpatient (IN) | payer MEDICARE ==
[~2019-09-02] VITALS: Ht 149.9 cm; Wt 62.2 kg
--- NOTE | ~2019-09-02 | PROC ---
[address] [address] PROCEDURE REPORT Name: ADRIANA BAKER Room: [address] IN .R.#: [id number] Admission: 09/02/19 Attend Phys: Gabrielle Silveira MD Discharge: Date of : 39 Report #: [id number] THIS REPORT FOR: //name// cc: Joe Stroud MD, David L. MD ~ THIS REPORT FOR: //name// For GI report, please see the Provation report in Perceptive 7 content. By: [id number] Records Staff ASHWIN /JUWAN
--- NOTE | ~2019-09-02 | PROC ---
[address] [address] PROCEDURE REPORT Name: ADRIANA BAKER Room: [address] IN .R.#: [id number] Admission: 09/02/19 Attend Phys: Gabrielle Silveira MD Discharge: Date of : 39 Report #: [id number] THIS REPORT FOR: //name// cc: Joe Stroud MD, David L. MD ~ THIS REPORT FOR: //name// For GI report, please see the Provation report in Perceptive 7 content. By: [id number] Records Staff EUGENIO /JUWAN
[~2019-09-02 17:59] MED LIST changes: +ATIVAN0.5 M1 PO; +CHILDREN'S ASPI81 M1 PO; +COMBIVENT RESPIM4 GM INH; +IPRATROPIU0.2 MG/1 M INH; +IRON325 M1 PO; +MELATONIN5 M4 PO; +NORCO 5-325 TA1 EAC1 PO; +NORVASC5 M1 PO
[2019-09-02 18:01] VITALS: BP 120/37
[2019-09-02 18:28] LABS: ABSOLUTE EOSINOPHILS 0.1 thou/uL (0.0-0.7); ABSOLUTE LYMPHOCYTES 0.5 thou/uL (0.8-5.3); ABSOLUTE MONOCYTES 0.5 thou/uL (0.0-1.2); ABSOLUTE NEUTROPHILS 2.5 thou/uL (1.6-8.1); BASOPHILS 1.1 %; EOSINOPHILS 1.4 %; LYMPHOCYTES 13.8 %; MCH 30.1 pg (26.0-34.0); MCHC 33.3 g/dL (28.0-37.0); MCV 90.3 fL (80.0-100.0); MONOCYTES 14.8 %; MPV 8.6 fl. (7.2-11.1); NUCLEATED RBCS 1 /100WBC; PLATELET COUNT* 213 thou/uL (150-400); POLYS 68.9 %; RBC 1.77 mil/uL (4.20-5.00); WBC 3.6 thou/uL (4.0-11.0)
[2019-09-02 18:30] LABS: HEMOGLOBIN 5.3 gm/dL (12.0-15.0)
[2019-09-02 18:38] LABS: APTT 24.3 Seconds (25.0-31.3); INR 1.1; PROTIME 11.1 Seconds (9.20-11.50)
[2019-09-02 18:41] LABS: ANION GAP < 0 mmol/L (7-16); BUN 53 mg/dL (7-18); CALCIUM 7.6 mg/dL (8.5-10.1); CHLORIDE 107 mmol/L (98-107); CO2 34 mmol/L (21-32); CREATININE 2.3 mg/dL (0.6-1.3); GLUCOSE 101 mg/dL (70-99); POTASSIUM 5.9 mmol/L (3.5-5.1); SODIUM 139 mmol/L (136-145)
[2019-09-02 18:45] LABS: ALBUMIN 1.6 g/dL (3.4-5.0); ALKALINE PHOSPHATASE 72 U/L (46-116); LIPASE 46 U/L (73-393); SGOT 15 U/L (15-37); SGPT 15 U/L (30-65); TOTAL BILIRUBIN 0.2 mg/dL (<0.1-1.0); TOTAL PROTEIN 3.8 g/dL (6.4-8.2)
[2019-09-02 21:22] LABS: URINE BILIRUBIN NEGATIVE (Negative); URINE BLOOD 3+ (Negative); URINE COLOR YELLOW; URINE GLUCOSE-RANDOM NEGATIVE (Negative); URINE KETONES NEGATIVE (Negative); URINE NITRITE-REFLEX NEGATIVE (Negative); URINE PROTEIN TRACE (Negative); URINE SPECIFIC GRAVITY 1.015 (1.005-1.030); URINE UROBILINOGEN 0.2 E.U./dl (0.2-1.0)
[2019-09-02 21:24] LABS: URINE CLARITY CLOUDY; URINE LEUKOCYTES-REFLEX 2+ (Negative)
[2019-09-02 21:30] LABS: BACTERIA-REFLEX >30 Many /HPF (None Seen); SQUAMOUS >10 Many /LPF (0-3); TRANSITIONAL EPITHEL CELL 0-3 Few /LPF (None Seen); URINE RBC 3-10 Few /HPF (0-2)
[2019-09-02 21:31] LABS: CRYSTALS None Seen /LPF (None Seen); HYALINE CASTS 0-3 Few /LPF (None Seen)
[2019-09-02 23:00] VITALS: BP 121/42; BP 132/36
[2019-09-03 03:17] VITALS: BP 103/60; BP 103/63; BP 140/33; BP 147/52; BP 166/56
[2019-09-03 06:09] LABS: HEMATOCRIT 26.9 % (37.0-47.0)
[2019-09-03 06:11] LABS: HEMOGLOBIN 9.1 gm/dL (12.0-15.0)
[2019-09-03 06:29] VITALS: BP 107/64
[2019-09-03 09:46] LABS: ABSOLUTE EOSINOPHILS 0.1 thou/uL (0.0-0.7); ABSOLUTE LYMPHOCYTES 0.6 thou/uL (0.8-5.3); ABSOLUTE MONOCYTES 0.8 thou/uL (0.0-1.2); ABSOLUTE NEUTROPHILS 3.5 thou/uL (1.6-8.1); BASOPHILS 0.9 %; EOSINOPHILS 2.7 %; HEMATOCRIT 27.4 % (37.0-47.0); HEMOGLOBIN 9.4 gm/dL (12.0-15.0); LYMPHOCYTES 12.8 %; MCHC 34.2 g/dL (28.0-37.0); MCV 90.5 fL (80.0-100.0); MPV 8.4 fl. (7.2-11.1); NUCLEATED RBCS 0 /100WBC; PLATELET COUNT* 198 thou/uL (150-400); POLYS 68.6 %; RBC 3.03 mil/uL (4.20-5.00); WBC 5.1 thou/uL (4.0-11.0)
[2019-09-03 09:56] LABS: PROTIME 10.3 Seconds (9.20-11.50)
[2019-09-03 10:04] LABS: ALBUMIN 1.9 g/dL (3.4-5.0); CALCIUM 7.7 mg/dL (8.5-10.1); CREATININE 2.5 mg/dL (0.6-1.3); POTASSIUM 5.8 mmol/L (3.5-5.1); TOTAL BILIRUBIN 0.3 mg/dL (<0.1-1.0); TOTAL PROTEIN 4.5 g/dL (6.4-8.2)
[2019-09-03 10:45] VITALS: BP 190/41
[2019-09-03 13:11] VITALS: BP 164/47
[2019-09-03 18:10] VITALS: BP 152/54
[2019-09-03 20:00] VITALS: BP 140/33
[2019-09-04] VITALS (7 sets, daily range): BP systolic 135–167; BP diastolic 44–74
[2019-09-04 09:32] LABS: ABSOLUTE EOSINOPHILS 0.1 thou/uL (0.0-0.7); ABSOLUTE LYMPHOCYTES 0.4 thou/uL (0.8-5.3); ABSOLUTE MONOCYTES 0.5 thou/uL (0.0-1.2); ABSOLUTE NEUTROPHILS 2.8 thou/uL (1.6-8.1); BASOPHILS 1.1 %; EOSINOPHILS 2.8 %; HEMATOCRIT 22.2 % (37.0-47.0); HEMOGLOBIN 7.5 gm/dL (12.0-15.0); LYMPHOCYTES 9.7 %; MCH 30.8 pg (26.0-34.0); MCHC 33.7 g/dL (28.0-37.0); MCV 91.3 fL (80.0-100.0); NUCLEATED RBCS 1 /100WBC; PLATELET COUNT* 175 thou/uL (150-400); POLYS 72.4 %; RBC 2.43 mil/uL (4.20-5.00); RDW-CV 15.7 % (10.5-14.5); WBC 3.9 thou/uL (4.0-11.0)
[2019-09-04 09:48] LABS: CALCIUM 7.4 mg/dL (8.5-10.1); CREATININE 2.3 mg/dL (0.6-1.3); POTASSIUM 5.1 mmol/L (3.5-5.1)
--- NOTE | 2019-09-04 12:29 | CON ---
[address] [address] CONSULTATION Name: ADRIANA BAKER Room: [address] IN M.R.#: [id number] Admission: 09/02/19 Attend Phys: Gabrielle Silveira MD Discharge: Date of : 39 Report #: [id number] THIS REPORT FOR: //name// cc: Joe Stroud MD, David L. MD ~ THIS REPORT FOR: //name// CC: oJe Silveira [facility] DATE OF SERVICE: 09/03/2019 REQUESTING PHYSICIAN: Jozef Dang MD. REASON FOR CONSULTATION: Hyperkalemia, acute kidney injury. HISTORY OF PRESENT ILLNESS: The patient is known to me. We will follow her in my office. She also was recently in the hospital. Unfortunately, she is gradually declining. She has recurrent GI bleed. She presented with confusion, weakness, was found to have hemoglobin of 5, GI consulted. Potassium went up to 5.8 after she received the blood, creatinine 2.5, baseline creatinine around 2.2. PAST MEDICAL HISTORY: 1. The patient significant for chronic kidney disease stage 3. 2. Atrial fibrillation. 3. Cardiomyopathy. 4. Gastrointestinal bleed. 5. History of colon cancer. 6. History of atrial fibrillation. 7. History of urinary tract infection. 8. Failure to thrive. SOCIAL HISTORY: No tobacco, no alcohol abuse. FAMILY HISTORY: Noncontributory. REVIEW OF SYSTEMS: Difficult to obtain and ____ to be very confused. PHYSICAL EXAMINATION: GENERAL: Confused, chronically ill-looking lady. VITAL SIGNS: Blood pressure 107/64, heart rate 67, afebrile. HEENT: Pupils are round. NECK: Supple. LUNGS: Decreased air movement at the bases, [place] [address] CONSULTATION Name: ADRIANA BAKER Room: [address]#: [id number] Admission: 09/02/19 Attend Phys: Gabrielle Silveira MD Discharge: Date of : 39 Report #: [id number] CARDIOVASCULAR: Irregular rate. ABDOMEN: Soft. LOWER EXTREMITIES: Trace edema. ASSESSMENT: 1. Gastrointestinal bleed with hemoglobin down to 5. 2. Acute kidney injury likely due to gastrointestinal bleed. 3. Chronic kidney disease stage 3. 4. Hyperkalemia. 5. Chronic atrial fibrillation. PLAN: 1. Stop spironolactone because of hyperkalemia. 2. Give a very low maintenance of fluids at 40 mL an hour. 3. Give her one dose of Lasix to help with hyperkalemia. <ELECTRONICALLY SIGNED> By: [place] MD 09/04/19 1229 1210 [id number] mady Hale
--- NOTE | 2019-09-04 13:45 | CON ---
[address] [address] CONSULTATION Name: ADRIANA BAKER Room: [address] IN M.R.#: [id number] Admission: 09/02/19 Attend Phys: Gabrielle Silveira MD Discharge: Date of : 39 Report #: [id number] THIS REPORT FOR: //name// cc: Yulia Stroud MD, David L. MD ~ THIS REPORT FOR: //name// CC: YULIA Silveira [facility] DATE OF SERVICE: 09/03/2019 CARDIOLOGY CONSULTATION HISTORY OF PRESENT ILLNESS: The patient is a 78-year-old white female who I was asked to see in the hospital today because of her history of atrial fibrillation. The history is obtained from the patient as well as some old records. There are no family members available. The patient has had multiple hospitalizations here at [facility]. She has a long history of paroxysmal atrial fibrillation and apparently has been cardioverted 3 times. Her last hospitalization here at [facility] was earlier this month. She had a history of pneumonia, but was COVID negative. Because of anemia, she was actually transfused. She came back to the Emergency Room yesterday. She noticed blood in her stool. She is sent over from [facility]. Cardiology consultation was requested. She denies any recent chest pain, shortness of breath, palpitations. PAST MEDICAL HISTORY: She has had previous tubal ligation. She has a history of spinal stenosis, hypertension. CURRENT MEDICATIONS: Include carvedilol, buspirone, amiodarone, Lipitor, Remeron, aspirin, spironolactone, amlodipine. ALLERGIES: SHE HAS ALLERGY TO PENICILLIN. FAMILY HISTORY: Negative for heart disease. SOCIAL HISTORY: She is single, lives here in [place]. Quit smoking years ago. No alcohol abuse. REVIEW OF SYSTEMS: She apparently had a history of stroke in the past with some aphasia. No history of asthma. She has chronic kidney disease. She has had colon cancer removed in the past. No psychiatric illness. [place] [address] CONSULTATION Name: ADRIANA BAKER Room: [address]#: [id number] Admission: 09/02/19 Attend Phys: Gabrielle Silveira MD Discharge: Date of : 39 Report #: [id number] PHYSICAL EXAMINATION: GENERAL: Revealed an elderly frail appearing female, lying in bed. She appeared in no distress. VITAL SIGNS: She had a blood pressure of 130/60, pulse is 60. She is afebrile. HEENT: She is anicteric. Conjunctivae pink. Mucous members are dry. NECK: Veins do not appear distended. CHEST: Clear to auscultation. CARDIOVASCULAR: Regular rate and rhythm. ABDOMEN: Soft. EXTREMITIES: Had no edema. SKIN: Warm, dry. NEUROLOGIC: Nonfocal. Her ECG on admission shows a sinus rhythm. Her echocardiogram done in July, last month, showed ejection fraction of 60%. No evidence of an intracardiac shunt by bubble study, left atrial enlargement, aortic sclerosis. Nuclear stress test in 2016 showed no evidence of ischemia, ejection fraction 59%. Her x-rays, she had a portable chest x-ray 08/26/2019 that showed mild cardiomegaly, evidence of pneumonia. LABORATORY WORK: Sodium 140, potassium 5.8, BUN 58, creatinine 2.5, albumin is only 1.9. Troponin 0.06. Her TSH last month was 1.9. White blood cell count 5.1, hemoglobin 9.4. IMPRESSION AND RECOMMENDATIONS: 1. Paroxysmal atrial fibrillation. The patient appears to be in sinus at this time on amiodarone. The patient was taken off Eliquis because of gastrointestinal bleeding. 2. Gastrointestinal bleeding. Cardiac status is stable. No cardiac contraindication to endoscopy at this time. 3. Anemia. The patient had a recent transfusion. 4. Previous stroke. 5. Hypertension. 6. Previous carotid endarterectomy. 7. Chronic kidney disease. 8. Hyperlipidemia. The patient is on a statin drug. <ELECTRONICALLY SIGNED> By: Yulia Alvarado MD, FACC 09/04/19 1345 1116 [id number] Alvarado MD, FAC /nt
[2019-09-05 01:36] VITALS: BP 135/53
[2019-09-05 04:00] VITALS: BP 147/47
[2019-09-05 05:29] LABS: ABSOLUTE EOSINOPHILS 0.1 thou/uL (0.0-0.7); ABSOLUTE LYMPHOCYTES 0.3 thou/uL (0.8-5.3); ABSOLUTE MONOCYTES 0.4 thou/uL (0.0-1.2); ABSOLUTE NEUTROPHILS 1.4 thou/uL (1.6-8.1); BASOPHILS 1.3 %; EOSINOPHILS 2.9 %; LYMPHOCYTES 14.9 %; MCH 31.6 pg (26.0-34.0); MCHC 32.5 g/dL (28.0-37.0); NUCLEATED RBCS 0 /100WBC; PLATELET COUNT* 138 thou/uL (150-400); POLYS 63.9 %; RBC 1.82 mil/uL (4.20-5.00); RDW-CV 16.5 % (10.5-14.5); WBC 2.2 thou/uL (4.0-11.0)
[2019-09-05 05:38] LABS: MCV 97.1 fL (80.0-100.0)
[2019-09-05 05:42] LABS: HEMATOCRIT 17.7 % (37.0-47.0); HEMOGLOBIN 5.8 gm/dL (12.0-15.0)
[2019-09-05 05:56] LABS: ALBUMIN 1.2 g/dL (3.4-5.0); CALCIUM 7.2 mg/dL (8.5-10.1); CREATININE 2.1 mg/dL (0.6-1.3); POTASSIUM 4.8 mmol/L (3.5-5.1); TOTAL BILIRUBIN 0.2 mg/dL (<0.1-1.0); TOTAL PROTEIN 3.4 g/dL (6.4-8.2)
[2019-09-05 07:30] VITALS: BP 138/36
[2019-09-05 12:05] VITALS: BP 109/22; BP 124/61; BP 125/28; BP 146/43
[2019-09-05 16:12] VITALS: BP 138/49
[2019-09-05 20:00] VITALS: BP 142/49
[2019-09-06 00:26] VITALS: BP 119/43
[2019-09-06 05:26] LABS: HEMATOCRIT 20.8 % (37.0-47.0); HEMOGLOBIN 7.1 gm/dL (12.0-15.0); MCH 31.2 pg (26.0-34.0); MCHC 34.1 g/dL (28.0-37.0); MPV 8.2 fl. (7.2-11.1); NUCLEATED RBCS 0 /100WBC; PLATELET COUNT* 146 thou/uL (150-400); RBC 2.27 mil/uL (4.20-5.00); RDW-CV 15.9 % (10.5-14.5); WBC 2.4 thou/uL (4.0-11.0)
[2019-09-06 05:38] LABS: MCV 91.5 fL (80.0-100.0)
[2019-09-06 06:02] LABS: CALCIUM 7.5 mg/dL (8.5-10.1); CREATININE 1.9 mg/dL (0.6-1.3)
[2019-09-06 06:17] LABS: ABSOLUTE LYMPHOCYTES 0.6 thou/uL (0.8-5.3); ABSOLUTE MONOCYTES 0.1 thou/uL (0.0-1.2); ABSOLUTE NEUTROPHILS 1.7 thou/uL (1.6-8.1); ANISOCYTOSIS 1+; HYPOCHROMASIA 1+; OVALOCYTES Occasional; PLATELET ESTIMATE DECREASED; POIKILOCYTOSIS 1+; POLYCHROMASIA Occasional
[2019-09-06 09:41] VITALS: BP 150/50
[2019-09-06 16:33] VITALS: BP 145/40
[2019-09-06 22:30] VITALS: BP 149/62
[2019-09-07] VITALS: BP 141/54
[2019-09-07 04:00] VITALS: BP 146/54
[2019-09-07 04:52] LABS: BASOPHILS 1.1 %; EOSINOPHILS 4.1 %; HEMATOCRIT 20.2 % (37.0-47.0); LYMPHOCYTES 21.2 %; MCH 31.6 pg (26.0-34.0); MCHC 33.8 g/dL (28.0-37.0); MCV 93.5 fL (80.0-100.0); MONOCYTES 18.2 %; MPV 8.4 fl. (7.2-11.1); NUCLEATED RBCS 0 /100WBC; PLATELET COUNT* 146 thou/uL (150-400); POLYS 55.4 %; RBC 2.16 mil/uL (4.20-5.00); RDW-CV 16.4 % (10.5-14.5)
[2019-09-07 05:25] LABS: ALBUMIN 1.1 g/dL (3.4-5.0); CALCIUM 7.5 mg/dL (8.5-10.1); CREATININE 1.6 mg/dL (0.6-1.3); POTASSIUM 3.9 mmol/L (3.5-5.1); TOTAL BILIRUBIN 0.3 mg/dL (<0.1-1.0); TOTAL PROTEIN 3.7 g/dL (6.4-8.2)
[2019-09-07 05:49] LABS: ABSOLUTE EOSINOPHILS 0.1 thou/uL (0.0-0.7); ABSOLUTE LYMPHOCYTES 0.4 thou/uL (0.8-5.3); ABSOLUTE MONOCYTES 0.3 thou/uL (0.0-1.2); HEMOGLOBIN 6.8 gm/dL (12.0-15.0); WBC 1.8 thou/uL (4.0-11.0)
[2019-09-07 07:30] VITALS: BP 147/46
[2019-09-07 12:38] VITALS: BP 134/48
[2019-09-07 16:55] VITALS: BP 136/55
[2019-09-07 20:00] VITALS: BP 134/61
[2019-09-08] VITALS (7 sets, daily range): BP systolic 99–132; BP diastolic 39–74
[2019-09-08 10:50] LABS: ABSOLUTE LYMPHOCYTES 0.7 thou/uL (0.8-5.3); ABSOLUTE MONOCYTES 0.5 thou/uL (0.0-1.2); ABSOLUTE NEUTROPHILS 1.7 thou/uL (1.6-8.1); BASOPHILS 1.5 %; HEMATOCRIT 20.9 % (37.0-47.0); HEMOGLOBIN 7.2 gm/dL (12.0-15.0); LYMPHOCYTES 22.1 %; MCH 31.2 pg (26.0-34.0); MCHC 34.2 g/dL (28.0-37.0); MCV 91.1 fL (80.0-100.0); MONOCYTES 18.2 %; MPV 8.7 fl. (7.2-11.1); NUCLEATED RBCS 0 /100WBC; PLATELET COUNT* 168 thou/uL (150-400); POLYS 57.2 %; RDW-CV 16.9 % (10.5-14.5)
[2019-09-08 11:00] LABS: CALCIUM 7.5 mg/dL (8.5-10.1); POTASSIUM 4.4 mmol/L (3.5-5.1)
[2019-09-08 19:08] LABS: HEMATOCRIT 18.6 % (37.0-47.0); HEMOGLOBIN 6.3 gm/dL (12.0-15.0)
[2019-09-09 04:00] VITALS: BP 142/44
[2019-09-09 04:29] LABS: ABSOLUTE LYMPHOCYTES 0.6 thou/uL (0.8-5.3); ABSOLUTE MONOCYTES 0.6 thou/uL (0.0-1.2); BASOPHILS 1.1 %; EOSINOPHILS 1.7 %; WBC 2.9 thou/uL (4.0-11.0)
[2019-09-09 04:33] LABS: ABSOLUTE NEUTROPHILS 1.7 thou/uL (1.6-8.1); HEMATOCRIT 24.6 % (37.0-47.0); LYMPHOCYTES 21.1 %; MCH 31.3 pg (26.0-34.0); MCHC 34.8 g/dL (28.0-37.0); MCV 89.8 fL (80.0-100.0); MONOCYTES 19.2 %; MPV 9.1 fl. (7.2-11.1); NUCLEATED RBCS 0 /100WBC; PLATELET COUNT* 133 thou/uL (150-400); POLYS 56.9 %; RBC 2.74 mil/uL (4.20-5.00); RDW-CV 15.9 % (10.5-14.5)
[2019-09-09 05:08] LABS: HEMOGLOBIN 8.6 gm/dL (12.0-15.0)
[2019-09-09 05:25] LABS: CALCIUM 7.2 mg/dL (8.5-10.1); CREATININE 2.1 mg/dL (0.6-1.3); POTASSIUM 3.9 mmol/L (3.5-5.1)
[2019-09-09 08:00] VITALS: BP 144/52
[2019-09-09 11:30] VITALS: BP 139/80
[2019-09-09 16:00] VITALS: BP 127/46
[2019-09-09 20:44] VITALS: BP 145/54
[2019-09-10] VITALS: BP 147/68
[2019-09-10 04:00] VITALS: BP 161/63
[2019-09-10 08:00] VITALS: BP 168/50
[2019-09-10 12:24] VITALS: BP 181/49
[2019-09-10 13:03] LABS: ABSOLUTE EOSINOPHILS 0.1 thou/uL (0.0-0.7); ABSOLUTE LYMPHOCYTES 0.4 thou/uL (0.8-5.3); ABSOLUTE MONOCYTES 0.4 thou/uL (0.0-1.2); ABSOLUTE NEUTROPHILS 1.3 thou/uL (1.6-8.1); BASOPHILS 1.3 %; EOSINOPHILS 2.6 %; HEMATOCRIT 24.4 % (37.0-47.0); HEMOGLOBIN 8.3 gm/dL (12.0-15.0); LYMPHOCYTES 19.9 %; MCV 91.4 fL (80.0-100.0); MONOCYTES 17.1 %; NUCLEATED RBCS 0 /100WBC; PLATELET COUNT* 138 thou/uL (150-400); POLYS 59.1 %; RBC 2.67 mil/uL (4.20-5.00); RDW-CV 16.3 % (10.5-14.5); WBC 2.2 thou/uL (4.0-11.0)
[2019-09-10 13:04] LABS: CALCIUM 7.2 mg/dL (8.5-10.1); CREATININE 1.9 mg/dL (0.6-1.3); POTASSIUM 3.9 mmol/L (3.5-5.1)
[2019-09-10 16:00] VITALS: BP 86/62
[2019-09-10 20:58] VITALS: BP 137/51
[2019-09-11] VITALS: BP 143/44
[2019-09-11 03:45] VITALS: BP 115/52
[2019-09-11 04:44] LABS: HEMOGLOBIN 9.4 gm/dL (12.0-15.0); MCH 31.2 pg (26.0-34.0); MCHC 33.4 g/dL (28.0-37.0); MCV 93.4 fL (80.0-100.0); NUCLEATED RBCS 0 /100WBC; PLATELET COUNT* 156 thou/uL (150-400); RDW-CV 17.3 % (10.5-14.5); WBC 3.2 thou/uL (4.0-11.0)
[2019-09-11 05:01] LABS: CALCIUM 7.3 mg/dL (8.5-10.1); CREATININE 1.9 mg/dL (0.6-1.3); POTASSIUM 4.3 mmol/L (3.5-5.1)
[2019-09-11 07:36] LABS: ABSOLUTE MONOCYTES 0.5 thou/uL (0.0-1.2); ABSOLUTE NEUTROPHILS 1.7 thou/uL (1.6-8.1); ATYPICAL LYMPHS 7 %
[2019-09-11 07:42] LABS: ANISOCYTOSIS 2+; HYPOCHROMASIA 1+; MICROCYTES 1+; PLATELET ESTIMATE ADEQUATE
[2019-09-11 07:43] LABS: SCHISTOCYTES Occasional
[2019-09-11 07:44] LABS: OVALOCYTES 1+
[2019-09-11 08:00] VITALS: BP 148/47
[2019-09-11 12:30] VITALS: BP 141/56
[2019-09-11 16:00] VITALS: BP 133/46
[2019-09-11 19:40] VITALS: BP 151/46
[2019-09-12] VITALS: BP 146/52
[2019-09-12 04:25] VITALS: BP 173/58
[2019-09-12 08:00] VITALS: BP 153/44
--- NOTE | 2019-09-12 11:06 | CON ---
[address] [address] CONSULTATION Name: ADRIANA BAKER Room: [address] IN M.R.#: [id number] Admission: 09/02/19 Attend Phys: Gabrielle Silveira MD Discharge: Date of : 39 Report #: [id number] THIS REPORT FOR: //name// cc: Joe Stroud MD, David L. MD ~ THIS REPORT FOR: //name// CC: Joe Mercer DATE OF SERVICE: 09/03/2019 REFERRING PHYSICIAN: Gabreille Silveira MD REASON FOR CONSULTATION: Recurrent GI bleeding. IMPRESSION: 1. Recurrent gastrointestinal bleeding with associated anemia requiring a total of 8 units of packed red cells up to date. 2. Status post treatment of Dieulafoy lesion within the second portion of duodenum. 3. Personal history of colon cancer with previous colon resection involving right hemicolectomy in the past with last colonoscopy not being known. RECOMMENDATIONS: 1. At the present time, given the fact that she has had recurrent overt hematochezia requiring transfusions, we will proceed with upper endoscopy later today. If it should board turner to be negative, we will proceed with bowel preparation and colonoscopy tomorrow. 2. I was able to review the patient's records and contact the patient's son, Sachin to get additional history. The patient has a prior history of colon cancer for which she underwent surgery in 2017, followed by adjuvant chemotherapy, but is unsure when her last colonoscopy was performed. 3. For this reason, this is likely she is going to have a colonoscopy during this hospital stay as well. I have discussed the plans with the patient as well and she is agreeable to the same. HISTORY OF PRESENT ILLNESS: This is a pleasant 78-year-old white female who has had recurrent GI bleeding with known history of Dieulafoy lesion, which has required two endoscopic treatments in within the last month and a half. She denies any major complaints referable to upper or lower GI tract, other than the fact she has had some rectal bleeding. She received a total of 8 units of blood up to this point in time and is likely going to [place] [address] CONSULTATION Name: ADRIANA BAKER Room: [address] IN [facility].#: [id number] Admission: 09/02/19 Attend Phys: Gabrielle Silveira MD Discharge: Date of : 39 Report #: [id number] during this hospital stay. She denies any dysphagia, odynophagia or postprandial pain. She denied any problem with her bowels or bowel frequency. The patient has a previous history of subacute stroke, for which she underwent carotid endarterectomy and though she does have chronic atrial fibrillation, her anticoagulation has been on hold secondary to recurrent GI bleeding. She was going to be referred at one point for Watchman procedure, but not coming to the hospital because of the problems with recurrent bleeding. ALLERGIES: PENICILLIN. MEDICATIONS: At home include vitamin D3, Coreg, BuSpar, amiodarone, atorvastatin, Remeron, Restoril, baby aspirin, Ativan, folic acid, spironolactone, Norvasc, probiotic, Protonix, Tylenol, milk of magnesia, Atrovent inhalers, Combivent inhalers, Spooner, and fish oil. PAST MEDICAL, SURGICAL, SOCIAL, AND FAMILY HISTORY: Per all pertinent records, not repeated here. PHYSICAL EXAMINATION: GENERAL: Revealed a pale 78-year-old white female who is awake and alert. CARDIOPULMONARY: Revealed an irregular rate and rhythm. LUNGS: Clear. ABDOMEN: Soft and not tender. No rebound or guarding noted. LABORATORY DATA: From the revealed a white count of 5.1, hemoglobin 9.4, platelet count 198,000, that was after she had received a couple of units of blood when her hemoglobin upon admission was only 5.3. Her sodium is 141, potassium is 5.8, chloride 107, bicarbonate is 32, BUN is 58, creatinine 2.5. Her GFR is only 19. Total bilirubin 0.3, alkaline phosphatase 76, AST 0.3 and ALT is 20. Albumin is only 1.9. CT scan of the abdomen and pelvis performed on the revealed postsurgical change compatible with right hemicolectomy. There is some renal atrophy. She does have some cysts noted within the kidneys as well. There are also gallstones noted without pericholecystic inflammatory change and no ductal dilation. She does have a moderate sized bilateral pleural effusions. The spleen, pancreas, adrenals appeared unrevealing. She does have diverticular disease. DISCUSSION: At the present time, the patient has had some problems with recurrent GI bleeding. We will proceed with upper endoscopy and likely she needs a colonoscopy during this hospital stay. I have discussed those plans [address] [address] CONSULTATION Name: ADRIANA BAKER Room: [address] IN .R.#: [id number] Admission: 09/02/19 Attend Phys: Gabrielle Silveira MD Discharge: Date of : 39 Report #: [id number] with the patient as well as with her son, Sachin and they were in agreement with the same. <ELECTRONICALLY SIGNED> By: Marco Cat DO 09/12/19 1106 1240 1420Marco Cat DO /nt
[2019-09-12] MEDS ORDERED: CARAFATE 1 GM TA1 GM PO (12:07)
[2019-09-12 12:17] VITALS: BP 155/80
[2019-09-12] MEDS ORDERED: LEVAQUIN 750 M750 MG PO (12:54)
[2019-09-12 15:47] VITALS: BP 155/80
[2019-09-12 16:38] VITALS: BP 176/48
== END 2019-09-12 16:50 | DRG 853 ==
LOC: M.ERS 17:59 → M.TBA-ER 18:58 → M.2W 18:58
PROVIDERS: Family Medicine; Internal Medicine; Internal Medicine Gastroenterology; Internal Medicine Nephrology; Personal Emergency Response Attendant; ADMIT Internal Medicine; ATTEND Internal Medicine
DX: A41.9 Sepsis, unspecified organism (principal); E43 Unspecified severe protein-calorie malnutrition; J96.01 Acute respiratory failure with hypoxia; G93.41 Metabolic encephalopathy; K26.4 Chronic or unspecified duodenal ulcer with hemorrhage; D62 Acute posthemorrhagic anemia; I42.9 Cardiomyopathy, unspecified; I48.20 Chronic atrial fibrillation, unspecified; N17.9 Acute kidney failure, unspecified; N39.0 Urinary tract infection, site not specified; J91.8 Pleural effusion in other conditions classified elsewhere; K92.1 Melena; I13.0 Hypertensive heart and chronic kidney disease with heart failure and stage 1 through stage 4 chronic kidney disease, or unspecified chronic kidney disease; F32.9 Major depressive disorder, single episode, unspecified; F41.9 Anxiety disorder, unspecified; N18.3 Chronic kidney disease, stage 3 (moderate); E78.00 Pure hypercholesterolemia, unspecified; I48.0 Paroxysmal atrial fibrillation; K44.9 Diaphragmatic hernia without obstruction or gangrene; R93.3 Abnormal findings on diagnostic imaging of other parts of digestive tract; K64.4 Residual hemorrhoidal skin tags; D12.5 Benign neoplasm of sigmoid colon; D12.3 Benign neoplasm of transverse colon; E78.5 Hyperlipidemia, unspecified; E87.5 Hyperkalemia; I50.9 Heart failure, unspecified; Z88.0 Allergy status to penicillin; Z68.27 Body mass index [BMI] 27.0-27.9, adult; Z79.899 Other long term (current) drug therapy; Z86.73 Personal history of transient ischemic attack (TIA), and cerebral infarction without residual deficits; Z79.82 Long term (current) use of aspirin; Z87.891 Personal history of nicotine dependence; Z85.038 Personal history of other malignant neoplasm of large intestine; Z90.49 Acquired absence of other specified parts of digestive tract; Z79.01 Long term (current) use of anticoagulants; Z03.818 Encounter for observation for suspected exposure to other biological agents ruled out

== ENCOUNTER 2019-09-18 04:01 | Inpatient (IN) | payer MEDICARE ==
[~2019-09-18] VITALS: Ht 152.4 cm; Wt 73.9 kg
[2019-09-18] VITALS (24 sets, daily range): BP systolic 94–199; BP diastolic 31–139
--- NOTE | ~2019-09-18 | PROC ---
[facility] [address] [place] [address] PROCEDURE REPORT Name: ADRIANA BAKER Room: [address] IN M.R.#: [id number] Admission: 09/18/19 Attend Phys: Herlinda Lindo Discharge: 09/21/19 Date of : 39 Report #: [id number] THIS REPORT FOR: //name// cc: Joe Stroud MD, David L. MD ~ THIS REPORT FOR: //name// For GI report, please see the Provation report in Perceptive 7 content. By: 0650Medical Records Staff EUGENIO /JUWAN
[~2019-09-18 04:01] MED LIST changes: +CARAFATE 1 GM TA1 GM PO; +LEVAQUIN 750 M750 MG PO
[2019-09-18 05:05] LABS: ABSOLUTE MONOCYTES 0.4 thou/uL (0.0-1.2); ABSOLUTE NEUTROPHILS 3.9 thou/uL (1.6-8.1); BASOPHILS 0.6 %; EOSINOPHILS 0.1 %; LYMPHOCYTES 19.1 %; MCH 31.7 pg (26.0-34.0); MCHC 34.1 g/dL (28.0-37.0); MCV 92.9 fL (80.0-100.0); MONOCYTES 7.7 %; MPV 9.4 fl. (7.2-11.1); NUCLEATED RBCS 0 /100WBC; PLATELET COUNT* 206 thou/uL (150-400); POLYS 72.5 %; RBC 1.72 mil/uL (4.20-5.00); RDW-CV 16.2 % (10.5-14.5); WBC 5.3 thou/uL (4.0-11.0)
[2019-09-18 05:14] LABS: CALCIUM 7.2 mg/dL (8.5-10.1); CREATININE 2.3 mg/dL (0.6-1.3); POTASSIUM 4.4 mmol/L (3.5-5.1)
[2019-09-18 05:16] LABS: APTT 22.6 Seconds (25.0-31.3); INR 1.1; PROTIME 11.3 Seconds (9.20-11.50)
[2019-09-18 05:25] LABS: HEMOGLOBIN 5.5 gm/dL (12.0-15.0)
[2019-09-18 05:29] LABS: ALBUMIN 1.5 g/dL (3.4-5.0); TOTAL BILIRUBIN 0.4 mg/dL (<0.1-1.0); TOTAL PROTEIN 3.7 g/dL (6.4-8.2)
--- NOTE | 2019-09-18 08:07 | NUR ---
SEE PAPER CHART FOR BLOOD TRANSFUSION DOCUMENTATION
[2019-09-18 12:01] LABS: ABSOLUTE LYMPHOCYTES 1.1 thou/uL (0.8-5.3); ABSOLUTE MONOCYTES 0.4 thou/uL (0.0-1.2); ABSOLUTE NEUTROPHILS 3.4 thou/uL (1.6-8.1); BASOPHILS 0.8 %; EOSINOPHILS 0.2 %; HEMATOCRIT 20.4 % (37.0-47.0); LYMPHOCYTES 22.1 %; MCH 31.6 pg (26.0-34.0); MCHC 33.7 g/dL (28.0-37.0); MCV 93.9 fL (80.0-100.0); MONOCYTES 8.8 %; MPV 9.3 fl. (7.2-11.1); NUCLEATED RBCS 0 /100WBC; PLATELET COUNT* 163 thou/uL (150-400); POLYS 68.1 %; RBC 2.17 mil/uL (4.20-5.00); RDW-CV 15.3 % (10.5-14.5)
[2019-09-18 12:05] LABS: HEMOGLOBIN 6.9 gm/dL (12.0-15.0)
[2019-09-18 17:54] LABS: HEMATOCRIT 25.5 % (37.0-47.0); HEMOGLOBIN 8.5 gm/dL (12.0-15.0)
--- NOTE | 2019-09-18 18:32 | NUR ---
ASSESSMENT CHARTED. VSS. CONSENT SIGNED FOR EGD IN THE MORNING. OCCULT STOOL SENT. PATIENT IS HAVING FREQUENT (EVERY 15-30MIN) SMALL BLACK LIQUID STOOLS. NO COMPLAINTS OF PAIN. Q2H TURNS PATIENT'S COCCYX IS RED. CLEAR LIQUID DIET STARTED FOR LUNCH BUT PATIENT REFUSED BOTH LUNCH AND DINNER SHE HAS NO APPETITE.
[2019-09-18 22:44] LABS: CHOLESTEROL 84 mg/dL (<200); HDL CHOLESTEROL 20 mg/dL (>40); LDL CHOLESTEROL 32 mg/dL (<100); SERUM ASSESSMENT CLEAR; TC:HDL 4.2 Ratio (Not establshd); TRIGLYCERIDE 161 mg/dL (<150); VLDL 32 mg/dL (<40)
[2019-09-19] VITALS (16 sets, daily range): BP systolic 97–171; BP diastolic 35–65
[2019-09-19 05:16] LABS: ABSOLUTE LYMPHOCYTES 0.8 thou/uL (0.8-5.3); ABSOLUTE MONOCYTES 0.4 thou/uL (0.0-1.2); ABSOLUTE NEUTROPHILS 3.1 thou/uL (1.6-8.1); BASOPHILS 0.7 %; EOSINOPHILS 0.9 %; HEMATOCRIT 23.5 % (37.0-47.0); LYMPHOCYTES 17.6 %; MCH 29.2 pg (26.0-34.0); MONOCYTES 9.1 %; MPV 8.6 fl. (7.2-11.1); NUCLEATED RBCS 0 /100WBC; PLATELET COUNT* 140 thou/uL (150-400); POLYS 71.7 %; RBC 2.74 mil/uL (4.20-5.00); RDW-CV 19.8 % (10.5-14.5); WBC 4.3 thou/uL (4.0-11.0)
[2019-09-19 05:19] LABS: MCV 85.8 fL (80.0-100.0)
[2019-09-19 05:33] LABS: ALBUMIN 1.5 g/dL (3.4-5.0); CREATININE 2.1 mg/dL (0.6-1.3); POTASSIUM 3.8 mmol/L (3.5-5.1); TOTAL BILIRUBIN 0.3 mg/dL (<0.1-1.0); TOTAL PROTEIN 3.6 g/dL (6.4-8.2)
--- NOTE | 2019-09-19 07:17 | NUR ---
NO SIGNIFICANT EVENTS THIS SHIFT. PATIENT SCHEDULED FOR EGD AT 1100. VSS, NPO SINCE MIDNIGHT. PATIENT ABLE TO TURN SELF.
--- NOTE | 2019-09-19 10:28 | CON ---
[address] [address] CONSULTATION Name: ADRIANA BAKER Room: [address] IN .R.#: [id number] Admission: 09/18/19 Attend Phys: Herlinda Lindo Discharge: Date of : 39 Report #: [id number] THIS REPORT FOR: //name// cc: Joe Stroud MD, David L. MD ~ THIS REPORT FOR: //name// CC: Joe Mercer DATE OF SERVICE: 09/18/2019 HISTORY OF PRESENT ILLNESS: This is a pleasant 78-year-old female known to our service from her previous hospitalizations for upper gastrointestinal bleed secondary to Dieulafoy lesion in the second portion of duodenum. The patient was brought in because of weakness and she was noted to have hemoglobin of 5.5. The patient had previously had an endoscopy performed in August that demonstrated a Dieulafoy lesion that was treated with injection of epinephrine and cautery. Subsequently, she presented 2 weeks later with similar upper GI bleed, lesion was found in the same spot this time in addition to thermal therapy. The patient had undergone hemostatic clipping. Repeat EGD was performed after 48 hours to ensure that there was no rebleeding. The patient denies any significant abdominal pain. Does report chills and extreme fatigue. The patient was previously on Eliquis for atrial fibrillation, but this was discontinued because of recurrent GI bleed. PAST MEDICAL HISTORY: History of stroke, status post carotid endarterectomy, atrial fibrillation, hyperlipidemia, hypertension, anxiety, spinal stenosis, and colon cancer. PAST SURGICAL HISTORY: The patient had a remote history of tubal ligation, cholecystectomy. Surgery for colon cancer in 2017, followed by adjuvant chemotherapy, but she does not follow with an oncologist at this time. SOCIAL HISTORY: The patient has remote history of smoking. Occasional alcohol use. FAMILY HISTORY: Not relevant. PHYSICAL EXAMINATION: VITAL SIGNS: Temperature 36.6, pulse rate 68, respirations 14, blood pressure 115/51, pulse ox 98%. GENERAL: The patient is alert, awake, oriented x 3. HEENT: Pupils are equal, round, reactive. Mucous membranes are moist. There is no congestion. LUNGS: Clear [place] [address] CONSULTATION Name: ADRIANA BAKER Room: [address] IN [facility]#: [id number] Admission: 09/18/19 Attend Phys: Herlinda Lindo Discharge: Date of : 39 Report #: [id number] CARDIOVASCULAR: Irregularly irregular rhythm. ABDOMEN: Soft. There is no tenderness, guarding, or rigidity. EXTREMITIES: Warm. There is no edema. LABORATORY DATA: Hemoglobin 5.5, hematocrit 16, platelet count 206, WBC count 5.3. INR 1.1. Sodium 141, potassium 4.4, chloride 106, bicarbonate 20, BUN 57, creatinine 2.3, total bilirubin 0.4, AST 23, ALT 28, alkaline phosphatase 70. ASSESSMENT AND PLAN: Pleasant 78-year-old female with history of recurrent upper gastrointestinal bleed secondary to duodenal Dieulafoy lesion, presenting with weakness and found to have anemia. We will transfuse the patient to keep her hemoglobin above 7. Placed the patient on Protonix drip. It is okay to give her a clear liquid diet today but keep her n.p.o. past midnight for upper endoscopy tomorrow. We will attempt to current hemostasis with an Ovesco clip tomorrow if more traditional methods fail. Thank you for this consultation. <ELECTRONICALLY SIGNED> By: Rafa Quarles MD 09/19/19 1028 1103 1138Rafa Quarles MD /nt
--- NOTE | 2019-09-19 15:35 | EKG ---
[place] [address] ELECTROCARDIOGRAM REPORT Name: SAMUELADRIANA TORREZ Room: [address] ADM IN M.R.#: [id number] Admission: 09/18/19 Attend Phys: Jose Mercer Discharge: Date of : 38 Date of Service: 09/18/19 0439 Report #: [id number] THIS REPORT FOR: //name// [facility] ED Test Date: 2019-09-18 Test Time: 04:39:29 Pat Name: ADRIANA BAKER Department: Room: [facility] Gender: F Certified Pediatric Nurse Practitioner: ADOLFO : 1940 Requested By: Gisele Guevara Order Number: [id number] MD: Marlon Garcia Measurements Intervals [place] Rate: 69 P: IA: QRS: 33 QRSD: 77 T: 20 QT: 426 QTc: 457 Interpretive Statements Junctional rhythm Low voltage, precordial leads Compared to ECG 08/26/2019 19:11:22 Junctional rhythm now present Sinus rhythm no longer present Atrial premature complex(es) no longer present Electronically Signed On 09-19-2019 15:34:54 CDT by Marlon Garcia [email or web address] <ELECTRONICALLY SIGNED> By: Marlon Garcia MD, [facility] 09/19/19 1534 0439 0439 Marlon Garcia MD, [facility] /EPI
--- NOTE | 2019-09-19 15:37 | NUR ---
PATIENT RESTING IN BED. BEDPAN FOR VOIDING AND BOWEL MOVWEMENTS. EGD WAS PERFORMED TODAY AND SHE IS SCHEDULED FOR COLONOSCOPY TOMORROW. STIL HAVING SCANT AMOUNTS OF DARK AND TARRY STOOL. VSS. LEONARDO DENIES PAIN. SHE IS AOX4 BUT FORGETFUL AND REQUIRESD EXTRA TIME FOR FREQUENT URINATION. HOURLY ROUNDING COMPLETED FOR LEONARDO SAFETY. TRANSFER TO ROOM 210 AT 15:35.
--- NOTE | 2019-09-19 15:58 | NUR ---
Pt known to this CM from previous hospital stay. Pt has been at [facility] and wants to return at [place]. CM left for Jessica at [facility] to confirm their ability to accept Pt back. Pt uses a walker for mobility. Prior to that, Pt lived independently at [facility]. Hx of [facility] skilled. Following.
[2019-09-20 04:45] LABS: ABSOLUTE LYMPHOCYTES 0.6 thou/uL (0.8-5.3); ABSOLUTE MONOCYTES 0.4 thou/uL (0.0-1.2); ABSOLUTE NEUTROPHILS 1.7 thou/uL (1.6-8.1); BASOPHILS 0.7 %; EOSINOPHILS 0.7 %; HEMATOCRIT 20.8 % (37.0-47.0); HEMOGLOBIN 7.1 gm/dL (12.0-15.0); MCH 29.4 pg (26.0-34.0); MCHC 34.1 g/dL (28.0-37.0); MCV 86.2 fL (80.0-100.0); MONOCYTES 13.3 %; MPV 8.2 fl. (7.2-11.1); NUCLEATED RBCS 0 /100WBC; PLATELET COUNT* 121 thou/uL (150-400); POLYS 63.3 %; RBC 2.42 mil/uL (4.20-5.00); RDW-CV 20.6 % (10.5-14.5); WBC 2.7 thou/uL (4.0-11.0)
[2019-09-20 04:59] LABS: ALBUMIN 1.3 g/dL (3.4-5.0); CALCIUM 6.8 mg/dL (8.5-10.1); CREATININE 1.7 mg/dL (0.6-1.3); POTASSIUM 3.7 mmol/L (3.5-5.1); TOTAL BILIRUBIN 0.3 mg/dL (<0.1-1.0); TOTAL PROTEIN 3.2 g/dL (6.4-8.2)
[2019-09-20 06:11] LABS: PLATELET ESTIMATE DECREASED
[2019-09-20 06:12] LABS: ANISOCYTOSIS 1+
--- NOTE | 2019-09-20 07:20 | NUR ---
CHANGE OF SHIFT , BEDSIDE REPORT GIVEN PATIENT SEEN AT BEDSIDE, IN BED ASLEEP ASSUMED PATIENT CARE
[2019-09-20 08:00] VITALS: BP 94/55
[2019-09-20 12:01] VITALS: BP 168/45
--- NOTE | 2019-09-20 13:06 | NUR ---
CM spoke with Jessica at [facility], they are able to accept Pt back [place].
[2019-09-20 16:27] VITALS: BP 140/95
[2019-09-20 20:00] VITALS: BP 132/43
[2019-09-21] VITALS: BP 152/52
--- NOTE | 2019-09-21 02:19 | NUR ---
PT ALERT ORIENTED 2-3. TELEMETRY SHOWS SR. O2 AT 2 LITERS NC. HYDROCODONE GIVEN FOR ABD PAIN. WCTM
[2019-09-21 04:00] VITALS: BP 102/42
--- NOTE | 2019-09-21 07:20 | NUR ---
CHANGE OF SHIFT, BEDSIDE REPORT GIVEN PATIENT SEEN AT BEDSIDE, IN BED ASLEEP ASSUMED PATIENT CARE BED ALARM ON
[2019-09-21 08:00] VITALS: BP 146/53
[2019-09-21 08:56] LABS: ABSOLUTE EOSINOPHILS 0.1 thou/uL (0.0-0.7); ABSOLUTE LYMPHOCYTES 0.7 thou/uL (0.8-5.3); ABSOLUTE MONOCYTES 0.4 thou/uL (0.0-1.2); ABSOLUTE NEUTROPHILS 1.4 thou/uL (1.6-8.1); BASOPHILS 0.9 %; EOSINOPHILS 2.4 %; HEMATOCRIT 22.2 % (37.0-47.0); HEMOGLOBIN 7.4 gm/dL (12.0-15.0); LYMPHOCYTES 27.4 %; MCH 29.4 pg (26.0-34.0); MCHC 33.3 g/dL (28.0-37.0); MCV 88.1 fL (80.0-100.0); MONOCYTES 13.8 %; MPV 8.1 fl. (7.2-11.1); NUCLEATED RBCS 0 /100WBC; PLATELET COUNT* 122 thou/uL (150-400); POLYS 55.5 %; RBC 2.52 mil/uL (4.20-5.00); RDW-CV 19.3 % (10.5-14.5); WBC 2.6 thou/uL (4.0-11.0)
[2019-09-21 09:00] LABS: CALCIUM 6.9 mg/dL (8.5-10.1); CREATININE 1.7 mg/dL (0.6-1.3); POTASSIUM 3.5 mmol/L (3.5-5.1)
[2019-09-21 09:04] LABS: ALBUMIN 1.4 g/dL (3.4-5.0); TOTAL BILIRUBIN 0.2 mg/dL (<0.1-1.0); TOTAL PROTEIN 3.6 g/dL (6.4-8.2)
[2019-09-21] MEDS ORDERED: LEVAQUIN 750 M750 MG PO (09:48)
[2019-09-21 11:55] VITALS: BP 117/56
--- NOTE | 2019-09-21 14:26 | NUR ---
Pt is discharging to [facility] skilled today, facility to picket [employer] between 430-5. CM will fax dc orders once available. Chart copied. Nurse report number is [id number]. Updated Pt's son.
--- NOTE | 2019-09-21 14:51 | NUR ---
ORDERS RECEIVED AND CHART REVIEWED, HOWEVER PATIENT VEHEMENTLY REFUSES TO BE EVALUATED. STATES THAT SHE CAN'T WALK AND NEEDS HELP BUT DECLINES ASSESSMENT AND ASSISTANCE, DESPITE BEING EDUCATED IN THE BENEFIT. CIRO MONTES, MPT
--- NOTE | 2019-09-21 17:15 | NUR ---
PATIENT DISCHARGED TO [facility] PATIENT LEFT VIA WC WITH ASSIST IN GOOD CONDITION TO WAITNG WC VAN IV AND HEART MONITOR REMOVED PERSONAL BELONGINGS RETURNED REPORT CALLED AND GIVEN TO YOGESH AT [facility]
--- NOTE | 2019-09-22 15:13 | PATH ---
[address] [address] PATHOLOGY RPT PROCEDURE Name: BEE MARTINEZ Room: [address] IN M.R.#: [id number] Admission: 09/18/19 Date of : 38 Discharge: 09/21/19 Report #: [id number] Path Case #: [id number] [facility] Accession Number: [id number] . 01 Material submitted: . PART A: sigmoid colon - SIGMOID POLYP X3 PART B: colon - TRANSVERSE POLYP. Modifiers: transverse . 01 Clinician provided ICD-10: K92.2 E43 . 02 Diagnosis: A. Sigmoid polyp x3: - Dominant fragment of tubular adenoma and another fragment suggestive of tubular adenoma, negative for high grade dysplasia. . B. Transverse polyp: - Tubular adenoma. . (ZOHAIB:abraham; 09/22/2019) [facility] 09/22/2019 1325 Local . 02 Electronically signed: . Reinier Perla MD, Pathologist NPI- [id number] . 01 Gross description: . A. The specimen is received in formalin, labeled "Bee Martinez, sigmoid polyp x3" and consists of 3 fragments of pink-cho tissue measuring between 0.3 x 0.3 cm and 0.5 x 0.5 cm which are entirely submitted in A1. . B. The specimen is received in formalin, labeled "Bee Martinez, transverse polyp" and consists of a fragment of green cho tissue measuring 0.5 x 0.4 cm which is entirely submitted in B1. (SDY; 09/21/2019) [facility]/SYU 09/22/2019 1323 Local . 02 Pathologist provided ICD-10: D12.5, D12.3 . 02 CPT . 339699, 426415 Specimen Comment: A courtesy copy of this report has been sent to [phone] Specimen Comment: [phone], Specimen Comment: Report sent to ,DR STEPHENS / DR MUNOZ Performed at: 01 [place] [address] PATHOLOGY RPT PROCEDURE Name: BEE MARTINEZ LORE Room: [address] IN M.R.#: [id number] Admission: 09/18/19 Date of : 38 Discharge: 09/21/19 Report #: [id number] Path Case #: [id number] [facility] [place] [address], [place], [place] [id number] MD Jose Santiago MD Phone: [phone] Performed at: [address] [facility] [address] [place] [id number] MD Reinier Perla MD Phone: [phone]
== END 2019-09-21 17:10 | DRG 377 ==
LOC: M.ERS 04:01 → M.TBA-ER 05:29 → M.ICU 05:29 → M.2W 09-19 15:58
PROVIDERS: Personal Emergency Response Attendant; ADMIT Internal Medicine; ATTEND Internal Medicine
PROC: 30233N1 Transfusion of Nonautologous Red Blood Cells into Peripheral Vein, Percutaneous Approach (ICD-10-PCS; principal; 2019-09-18)
PROC: 0DJ08ZZ Inspection of Upper Intestinal Tract, Via Natural or Artificial Opening Endoscopic (ICD-10-PCS; 2019-09-19)
PROC: 0DBN8ZZ Excision of Sigmoid Colon, Via Natural or Artificial Opening Endoscopic (ICD-10-PCS; 2019-09-20)
PROC: 0DBL8ZZ Excision of Transverse Colon, Via Natural or Artificial Opening Endoscopic (ICD-10-PCS; 2019-09-20)
DX: K92.2 Gastrointestinal hemorrhage, unspecified (principal); E43 Unspecified severe protein-calorie malnutrition; I50.33 Acute on chronic diastolic (congestive) heart failure; D62 Acute posthemorrhagic anemia; I13.0 Hypertensive heart and chronic kidney disease with heart failure and stage 1 through stage 4 chronic kidney disease, or unspecified chronic kidney disease; K26.9 Duodenal ulcer, unspecified as acute or chronic, without hemorrhage or perforation; F41.9 Anxiety disorder, unspecified; F32.9 Major depressive disorder, single episode, unspecified; I48.91 Unspecified atrial fibrillation; N18.9 Chronic kidney disease, unspecified; E83.51 Hypocalcemia; Z20.828 Contact with and (suspected) exposure to other viral communicable diseases; D12.3 Benign neoplasm of transverse colon; D12.5 Benign neoplasm of sigmoid colon; Z86.73 Personal history of transient ischemic attack (TIA), and cerebral infarction without residual deficits; Z85.038 Personal history of other malignant neoplasm of large intestine; Z88.0 Allergy status to penicillin; Z87.891 Personal history of nicotine dependence; Z68.31 Body mass index [BMI] 31.0-31.9, adult; Z98.0 Intestinal bypass and anastomosis status

== ENCOUNTER 2019-09-28 09:11 | Emergency (ER) | payer MEDICARE ==
[~2019-09-28] VITALS: Ht 152.4 cm; Wt 72.0 kg
[2019-09-28 09:39] LABS: ABSOLUTE EOSINOPHILS 0.3 thou/uL (0.0-0.7); ABSOLUTE LYMPHOCYTES 0.8 thou/uL (0.8-5.3); ABSOLUTE MONOCYTES 0.5 thou/uL (0.0-1.2); ABSOLUTE NEUTROPHILS 3.4 thou/uL (1.6-8.1); BASOPHILS 0.9 %; EOSINOPHILS 5.8 %; HEMATOCRIT 24.6 % (37.0-47.0); LYMPHOCYTES 15.8 %; MCHC 32.6 g/dL (28.0-37.0); MCV 88.9 fL (80.0-100.0); MPV 8.2 fl. (7.2-11.1); NUCLEATED RBCS 0 /100WBC; PLATELET COUNT* 202 thou/uL (150-400); POLYS 67.5 %; RBC 2.77 mil/uL (4.20-5.00); RDW-CV 19.8 % (10.5-14.5); WBC 5.1 thou/uL (4.0-11.0)
[2019-09-28 09:49] LABS: CALCIUM 7.4 mg/dL (8.5-10.1)
[2019-09-28 09:52] LABS: APTT 25.9 Seconds (25.0-31.3); PROTIME 9.9 Seconds (9.20-11.50)
[2019-09-28 10:00] LABS: ALBUMIN 1.7 g/dL (3.4-5.0); TOTAL BILIRUBIN 0.3 mg/dL (<0.1-1.0); TOTAL PROTEIN 4.6 g/dL (6.4-8.2)
[2019-09-28 10:16] LABS: URINE BILIRUBIN NEGATIVE (Negative); URINE BLOOD NEGATIVE (Negative); URINE CLARITY CLEAR; URINE COLOR YELLOW; URINE GLUCOSE-RANDOM NEGATIVE (Negative); URINE KETONES NEGATIVE (Negative); URINE LEUKOCYTES-REFLEX 1+ (Negative); URINE NITRITE-REFLEX NEGATIVE (Negative); URINE PROTEIN 1+ (Negative); URINE SPECIFIC GRAVITY 1.025 (1.005-1.030); URINE UROBILINOGEN 0.2 E.U./dl (0.2-1.0)
[2019-09-28 10:40] VITALS: BP 151/48
[2019-09-28 10:59] LABS: BACTERIA-REFLEX 1-9 Few /HPF (None Seen); CASTS None Seen /LPF (None Seen); CRYSTALS None Seen /LPF (None Seen); MUCUS None Seen strn/LPF (None Seen); SQUAMOUS >10 Many /LPF (0-3); URINE RBC 0-2 Rare /HPF (0-2); URINE WBC-REFLEX 0-5 Rare /HPF (0-5)
--- NOTE | 2019-09-28 16:04 | EKG ---
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: : 1940 Requested By: Arvind Ramsey Order Number: [id number] MD: Joe Alvarado Measurements Intervals Harris Rate: 59 P: 0 [place]: 63 QRS: 27 QRSD: 105 T: 3 QT: 425 QTc: 421 Interpretive Statements Sinus rhythm artifact noted Low voltage, precordial leads Borderline T abnormalities, inferior leads Compared to ECG 09/18/2019 04:39:29 Junctional rhythm no longer present Electronically Signed On 09-28-2019 16:04:43 CDT by Joe Alvarado [email or web address] <ELECTRONICALLY SIGNED> By: Joe Alvarado MD, [facility] 09/28/19 1604 0918 0918 Joe Alvarado MD, [facility] /EPI
== END 2019-09-28 11:39 | disposition home or self-care (01) ==
LOC: M.ERS 09:11
PROVIDERS: Family Medicine
DX: D64.9 Anemia, unspecified (principal); E78.00 Pure hypercholesterolemia, unspecified; I10 Essential (primary) hypertension; I48.91 Unspecified atrial fibrillation; Z86.73 Personal history of transient ischemic attack (TIA), and cerebral infarction without residual deficits; Z85.89 Personal history of malignant neoplasm of other organs and systems; Z85.038 Personal history of other malignant neoplasm of large intestine; Z88.0 Allergy status to penicillin; Z98.51 Tubal ligation status; Z87.442 Personal history of urinary calculi